=== PATIENT | female | born 1945 | race Caucasian/White ===

== ENCOUNTER 2016-07-06 00:25 | Inpatient (IN) ==
[2016-07-06] MEDS ORDERED: Acetaminophen 650 MG RECTAL SUPP RC ONE (00:32)
--- NOTE | 2016-07-06 00:37 | Emergency Department Note ---
Disposition Clinical Impression: Altered mental status Sepsis Qualifiers: Sepsis type: sepsis due to unspecified organism Qualified Code(s): A41.9 - Sepsis, unspecified organism UTI (urinary tract infection) Qualifiers: Hematuria presence: without hematuria Disposition: Admitted As Inpatient Condition: Fair Altered Mental Status HPI - General Chief Complaint: ED Altered Mental Status Stated Complaint: unresponsive,uti Time Seen by Provider: 07/06/16 00:29 Source: EMS Mode of arrival: EMS Limitations: altered mental status Nursing Notes Reviewed: Yes Vital Signs Reviewed: Yes - History of Present Illness HPI Narrative: 71-year-old female presents for evaluation of altered mental status. Patient does have a history of UTIs of similar presentations. Patient has been feeling ill for the past 2 days per EMS. EMS provided history at presentation. Patient has a nonfocal neurologic exam. Patient's diet will provide history. Patient does answer simple questions with notable confusion. No trauma noted. Family not at bedside providing any further history. Patient's blood sugar was elevated. His tree was limited upon initial presentation given the patient's alteration in mental status. MD complaint: altered mental status, confusion Onset (ago): hour(s) Timing confirmed by: family member - Related Data Home Medications Medication Instructions Recorded Confirmed Acarbose [Precose] 25 mg PO TIDWM 02/02/15 01/10/16 Apremilast [Otezla] 30 mg PO BID 02/02/15 01/10/16 Aspirin Enteric Coated [Aspirin EC] 81 mg PO DAILY 02/02/15 01/10/16 Donepezil [Aricept] 5 mg PO HS 02/02/15 01/10/16 Furosemide [Lasix] 20 mg PO DAILY 02/02/15 01/10/16 Gabapentin [Neurontin] 300 mg PO BID 02/02/15 01/10/16 Insulin ASPART [NovoLOG] 20 - 25 unit SQ TIDAC 02/02/15 01/10/16 Insulin Glargine [Lantus] 50 unit SQ BID 02/02/15 01/10/16 Lisinopril [Zestril] 10 mg PO HS 02/02/15 01/10/16 Metformin [Glucophage] 500 mg PO BID 02/02/15 01/10/16 Omeprazole [PriLOSEC] 40 mg PO DAILY 02/02/15 01/10/16 Oxybutynin Chloride [Ditropan Xl] 10 mg PO DAILY 02/02/15 01/10/16 Potassium Chloride 20 meq PO DAILY 02/02/15 01/10/16 Saccharomyces Boulardii [Probiotic] 250 mg PO DAILY 02/02/15 01/10/16 Sucralfate [Carafate] 1 gm PO TID 02/02/15 01/10/16 TraMADol [Ultram] 50 mg PO Q4H PRN 02/02/15 01/10/16 Betamethasone Maddi 0.1% Crm 1 appl TP BID 12/16/15 01/10/16 [Valisone 0.1%] BuPROPion XL (24 HR) [Wellbutrin 150 mg PO DAILY 12/16/15 01/10/16 Xl] Paroxetine HCl [Paxil] 40 mg PO DAILY 12/16/15 01/10/16 Rosuvastatin [Crestor] 40 mg PO HS 12/16/15 01/10/16 Trospium Chloride 20 mg PO HS 12/16/15 01/10/16 Tolterodine LA (24 HR) [Detrol LA] 4 mg PO DAILY 12/30/15 01/10/16 Previous Rx's Medication Instructions Recorded HYDROcodone/Acet 5/325 mg [[place] 2 tab PO Q4H PRN #15 tablet 01/10/16 5-325 mg] Allergies Allergy/AdvReac Type Severity Reaction Status Date / Time heparin Allergy HIT Verified 12/30/15 13:48 Verapamil [From [place]] AdvReac Rash Verified 02/02/15 13:13 Limitations: ROS unobtainable due to patients medical condition Past Medical History - Past Medical History Medical history: Reports: cancer, diabetes, hypertension, kidney stones, other Surgical history: Reports: appendectomy, hysterectomy, knee replacement, pacemaker/AICD Psychiatric history: Reports: anxiety, depression - Social History Smoking Status: Never smoker Smokeless Tobacco Status: No Alcohol use: Reports: occasionally Drug use: Reports: none Physical Exam - General Limitations: altered mental status General appearance: alert, lethargic, obese - Head Head exam: atraumatic, normal inspection - Eye Eye exam: Present: normal appearance, EOMI (3MM). Absent: scleral icterus, miosis - ENT ENT exam: normal exam, mucous membranes moist - Neck Neck exam: Present: normal inspection - Chest Chest inspection: Present: normal inspection, symmetric chest wall rise - Respiratory Respiratory exam: Present: other (Controlling her secretions. Decreased breath sounds bilateral). Absent: normal lung sounds bilaterally, respiratory distress , accessory muscle use - Cardiovascular Cardiovascular exam: Present: regular rate, normal rhythm - Abdominal Exam Abdominal exam: Present: soft, Non-Tender. Absent: guarding, rebound - Extremities Exam Extremities exam: Present: normal inspection. Absent: pedal edema - Back Exam Back exam: Present: normal inspection - Neurological Exam Neurological exam: Present: alert, other (Moving all extremities. Nonfocal exam. Does not follow directions.) - Skin Skin exam: Present: warm, dry, intact, normal color, other (Warm to the touch) Course Course Narrative: Patient did trigger surgical criteria with her fever, altered mental status. Likely source in the urine. Patient will also get a chest x-ray, head CT basic lab work. Patient will get gradual titration of fluid hydration. Concerns of over hydrating with the 30 mL/kg bolus until known cardiac function is obtained. Patient does have a pacemaker in place. Patient records review shows that her urine was sensitive to Rocephin in the past. Patient will be cultured as well as IV antibiotics initiated. Laboratory per sepsis protocol. Vital Signs Temperature 102.8 F H 07/06/16 00:26 Pulse Rate 101 07/06/16 00:26 Respiratory Rate 20 07/06/16 00:26 Blood Pressure 171/93 07/06/16 00:26 O2 Sat by Pulse Oximetry 97 07/06/16 00:26 Temperature 102.8 F H 07/06/16 00:26 Pulse Rate 101 07/06/16 01:15 Respiratory Rate 20 07/06/16 01:15 Blood Pressure 148/85 07/06/16 01:15 O2 Sat by Pulse Oximetry 96 07/06/16 01:15 Oxygen Delivery Oxygen Delivery Nasal Cannula Altered Mental Status - [facility] Narrative Medical decision making narrative: 71-year-old female patient. For evaluation of altered mental status. Patient has a history of similar presentation with urinary tract infections. Patient was incontinent of urine on presentation. Patient did trigger seizures with sepsis likely source in the urine. Patient received 2 L normal fluid hydration of saline. Was cautious about the 30 mL/kg as the patient is elderly and does have a pacemaker and concerned about heart function. Patient also had a head CT as well as a chest x-ray given the alteration in mental status. Patient's neuro exam is nonfocal. Moving all extremity. Patient does answer questions but appears inappropriate. Patient's laboratory review shows that she does have urinary tract infection. Prior cultures are pansensitive Escherichia coli. Patient was given 2 g Rocephin upon arrival. One of care was discussed with the patient's at bedside. Agrees with plan of care. Admitted to the hospital service for further care and managing. The remaining of the documentation is found on paper format during [facility] downtime. Please see that degradation for complete details of the emergency department stay. - Lab Data Lab results reviewed: Yes I reviewed the patient's lab results. Result diagrams: 07/06/16 00:41 07/06/16 00:41 Lab Results 07/06/16 07/06/16 07/06/16 Range/Units 00:41 00:41 00:41 WBC 9.7 (4.3-11.1) K/mcL RBC 4.93 (3.82-4.97) M/mcL Hgb 13.3 (11.5-15.4) g/dL Hct 41.2 (35.3-44.9) % MCV 83.6 (83.0-100.0) fL MCH 27.0 L (28.0-33.3) pg MCHC 32.3 (31.6-35.5) g/dL RDW 15.7 H (11.5-14.5) % Plt Count 109 L (140-400) K/mcL MPV 10.1 (9.4-12.4) fL Immature Gran % 0.3 (0-4) % Seg Neutrophils % 80.2 % Lymphocytes % 11.5 % Monocytes % 7.8 % Eosinophils % 0.0 % Basophils % 0.2 % Neutrophils # 7.8 (1.6-8.9) K/mcL Lymphocytes # 1.1 (0.6-4.6) K/mcL Monocytes # 0.8 (0.0-1.3) K/mcL Eosinophils # 0.0 (0.0-0.6) K/mcL Basophils # 0.0 (0.0-0.2) K/mcL PT 16.6 H (9.4-12.1) Seconds INR 1.5 APTT 33.4 (26.0-36.0) Seconds Sodium (136-145) mEq/L Potassium (3.5-4.5) mEq/L Chloride (98-109) mEq/L Carbon Dioxide (19-29) mEq/L BUN (7-20) mg/dL Creatinine (0.57-1.11) mg/dL Est GFR ( Amer) (> 60) Est GFR (Non-Af Amer) (> 60) BUN/Creatinine Ratio (6-26) Glucose (70-99) mg/dL Calculated Osmolality (280-300) Lactic Acid (0.5-2.2) mmol/L Calcium (8.6-10.8) mg/dL Phosphorus (2.3-4.7) mg/dL Magnesium (1.6-2.6) mg/dL Total Bilirubin (0.2-1.2) mg/dL Direct Bilirubin (0.0-0.5) mg/dL Indirect Bilirubin (0.0-1.2) mg/dL AST (5-34) Units/L ALT (0-55) Units/L Alkaline Phosphatase (38-126) Units/L Troponin I (0-0.03) ng/mL B-Natriuretic Peptide 133 H (0-100) pg/mL Serum Total Protein (6.0-8.3) g/dL Albumin (3.5-5.0) g/dL Globulin (2.4-3.5) g/dL Albumin/Globulin Ratio (1.1-2.2) Urine Color (Yellow) Urine Clarity (Clear) Urine pH (5.0-8.0) pH Units Ur Specific [place] (1.010-1.025) Urine Protein (Neg-Trace) mg/dL Urine Glucose (UA) (Normal) mg/dL Urine Ketones (Negative) mg/dL Urine Blood (Negative) Urine Nitrite (Negative) Urine Bilirubin (Negative) Urine Urobilinogen (Normal) mg/dL Ur Leukocyte Esterase (Negative) Urine Microscopic RBC (0-3) per hpf Urine Microscopic WBC (0-3) per hpf Ur Squamous Epith Cells (None-Few) per lpf Urine Bacteria (None-Few) per hpf Ur Culture Indicated? (NO) 07/06/16 07/06/16 07/06/16 Range/Units 00:41 00:41 00:41 WBC (4.3-11.1) K/mcL RBC (3.82-4.97) M/mcL Hgb (11.5-15.4) g/dL Hct (35.3-44.9) % MCV (83.0-100.0) fL MCH (28.0-33.3) pg MCHC (31.6-35.5) g/dL RDW (11.5-14.5) % Plt Count (140-400) K/mcL MPV (9.4-12.4) fL Immature Gran % (0-4) % Seg Neutrophils % % Lymphocytes % % Monocytes % % Eosinophils % % Basophils % % Neutrophils # (1.6-8.9) K/mcL Lymphocytes # (0.6-4.6) K/mcL Monocytes # (0.0-1.3) K/mcL Eosinophils # (0.0-0.6) K/mcL Basophils # (0.0-0.2) K/mcL PT (9.4-12.1) Seconds INR APTT (26.0-36.0) Seconds Sodium 136 (136-145) mEq/L Potassium 3.9 (3.5-4.5) mEq/L Chloride 102 (98-109) mEq/L Carbon Dioxide 20 (19-29) mEq/L BUN 24 H (7-20) mg/dL Creatinine 1.50 H (0.57-1.11) mg/dL Est GFR ( Amer) 41 L (> 60) Est GFR (Non-Af Amer) 34 L (> 60) BUN/Creatinine Ratio 16 (6-26) Glucose 337 H (70-99) mg/dL Calculated Osmolality 299 (280-300) Lactic Acid 2.0 (0.5-2.2) mmol/L Calcium 9.9 (8.6-10.8) mg/dL Phosphorus 2.5 (2.3-4.7) mg/dL Magnesium 1.6 (1.6-2.6) mg/dL Total Bilirubin 1.6 H (0.2-1.2) mg/dL Direct Bilirubin 0.8 H (0.0-0.5) mg/dL Indirect Bilirubin 0.8 (0.0-1.2) mg/dL AST 18 (5-34) Units/L ALT 19 (0-55) Units/L Alkaline Phosphatase 132 H (38-126) Units/L Troponin I 0.01 (0-0.03) ng/mL B-Natriuretic Peptide (0-100) pg/mL Serum Total Protein 8.1 (6.0-8.3) g/dL Albumin 3.1 L (3.5-5.0) g/dL Globulin 5.0 H (2.4-3.5) g/dL Albumin/Globulin Ratio 0.6 L (1.1-2.2) Urine Color (Yellow) Urine Clarity (Clear) Urine pH (5.0-8.0) pH Units Ur Specific [place] (1.010-1.025) Urine Protein (Neg-Trace) mg/dL Urine Glucose (UA) (Normal) mg/dL Urine Ketones (Negative) mg/dL Urine Blood (Negative) Urine Nitrite (Negative) Urine Bilirubin (Negative) Urine Urobilinogen (Normal) mg/dL Ur Leukocyte Esterase (Negative) Urine Microscopic RBC (0-3) per hpf Urine Microscopic WBC (0-3) per hpf Ur Squamous Epith Cells (None-Few) per lpf Urine Bacteria (None-Few) per hpf Ur Culture Indicated? (NO) 07/06/16 Range/Units 03:00 WBC (4.3-11.1) K/mcL RBC (3.82-4.97) M/mcL Hgb (11.5-15.4) g/dL Hct (35.3-44.9) % MCV (83.0-100.0) fL MCH (28.0-33.3) pg MCHC (31.6-35.5) g/dL RDW (11.5-14.5) % Plt Count (140-400) K/mcL MPV (9.4-12.4) fL Immature Gran % (0-4) % Seg Neutrophils % % Lymphocytes % % Monocytes % % Eosinophils % % Basophils % % Neutrophils # (1.6-8.9) K/mcL Lymphocytes # (0.6-4.6) K/mcL Monocytes # (0.0-1.3) K/mcL Eosinophils # (0.0-0.6) K/mcL Basophils # (0.0-0.2) K/mcL PT (9.4-12.1) Seconds INR APTT (26.0-36.0) Seconds Sodium (136-145) mEq/L Potassium (3.5-4.5) mEq/L Chloride (98-109) mEq/L Carbon Dioxide (19-29) mEq/L BUN (7-20) mg/dL Creatinine (0.57-1.11) mg/dL Est GFR ( Amer) (> 60) Est GFR (Non-Af Amer) (> 60) BUN/Creatinine Ratio (6-26) Glucose (70-99) mg/dL Calculated Osmolality (280-300) Lactic Acid (0.5-2.2) mmol/L Calcium (8.6-10.8) mg/dL Phosphorus (2.3-4.7) mg/dL Magnesium (1.6-2.6) mg/dL Total Bilirubin (0.2-1.2) mg/dL Direct Bilirubin (0.0-0.5) mg/dL Indirect Bilirubin (0.0-1.2) mg/dL AST (5-34) Units/L ALT (0-55) Units/L Alkaline Phosphatase (38-126) Units/L Troponin I (0-0.03) ng/mL B-Natriuretic Peptide (0-100) pg/mL Serum Total Protein (6.0-8.3) g/dL Albumin (3.5-5.0) g/dL Globulin (2.4-3.5) g/dL Albumin/Globulin Ratio (1.1-2.2) Urine Color Yellow (Yellow) Urine Clarity Turbid A (Clear) Urine pH 6.5 (5.0-8.0) pH Units Ur Specific [place] 1.020 (1.010-1.025) Urine Protein 100 H (Neg-Trace) mg/dL Urine Glucose (UA) >=1000 H (Normal) mg/dL Urine Ketones Trace H (Negative) mg/dL Urine Blood Moderate H (Negative) Urine Nitrite Positive A (Negative) Urine Bilirubin Negative (Negative) Urine Urobilinogen Normal (Normal) mg/dL Ur Leukocyte Esterase Large H (Negative) Urine Microscopic RBC 0-3 (0-3) per hpf Urine Microscopic WBC TNTC H (0-3) per hpf Ur Squamous Epith Cells Many H (None-Few) per lpf Urine Bacteria Moderate H (None-Few) per hpf Ur Culture Indicated? YES A (NO) - Radiology Data Radiology results reviewed: Yes I reviewed the patient's radiology results. Head CT 07/06/16 00:34 IMPRESSION: No acute intracranial abnormality. D/ / West Smallwood MD / West Smallwood MD Interpreting Provider: West Smallwood MD S.B.A.R. - S.B.A.R. Situation: Demographics Background: Presenting Complaint Assessment: Vital Signs, Course and respsone to treatment, Patient/Family Expectation, Pertinant Lab Results Recommendation: Barrier(s) to disposition, Recommendation based on pending studies, treatments, or consults S.B.A.R. Report Given to: Hospitalist Attestation Statement - Attestation Attestation: See downtime dictation note.
[2016-07-06 00:50] LABS: Basophils % 0.2 %; Hematocrit 41.2 % (35.3-44.9); Hemoglobin 13.3 g/dL (11.5-15.4); Immature Granulocytes % 0.3 % (0-4); Lymphocytes # 1.1 K/mcL (0.6-4.6); Lymphocytes % 11.5 %; Mean Corpuscular HGB Conc 32.3 g/dL (31.6-35.5); Mean Corpuscular Volume 83.6 fL (83.0-100.0); Mean Platelet Volume 10.1 fL (9.4-12.4); Monocytes # 0.8 K/mcL (0.0-1.3); Monocytes % 7.8 %; Neutrophils # 7.8 K/mcL (1.6-8.9); Platelet Count 109 K/mcL (140-400); Red Blood Count 4.93 M/mcL (3.82-4.97); Red Cell Distribution Width 15.7 % (11.5-14.5); Segmented Neutrophils % 80.2 %
[2016-07-06] MEDS: 0.9 % Sodium Chloride 1,000 ML IVC SCH ×4 (00:57→23:04)
[2016-07-06 00:58] LABS: INR 1.5; Prothrombin Time 16.6 Seconds (9.4-12.1)
[2016-07-06 01:00] LABS: Activated Partial Thrombo Time 33.4 Seconds (26.0-36.0)
[2016-07-06 03:47] LABS: Albumin 3.1 g/dL (3.5-5.0); Albumin/Globulin Ratio 0.6 (1.1-2.2); Bilirubin,Direct 0.8 mg/dL (0.0-0.5); Bilirubin,Indirect 0.8 mg/dL (0.0-1.2); Bilirubin,Total 1.6 mg/dL (0.2-1.2); Calcium 9.9 mg/dL (8.6-10.8); Magnesium 1.6 mg/dL (1.6-2.6); Phosphorous 2.5 mg/dL (2.3-4.7); Potassium 3.9 mEq/L (3.5-4.5); Total Protein 8.1 g/dL (6.0-8.3)
--- NOTE | 2016-07-06 04:42 | Internal Med History&Physical ---
Date of Encounter: 07/06/16 Time of Encounter: 04:41 Assessment and Plan (1) Severe sepsis Current visit: Yes Status: Acute pt with a history of recurrent UTI's associated with confusion was brought in by family for same presentation, though urine is a dirty sample it is suggestive of UTI, she additionally meets SIRS criteria(fever, tachycardia) with end organ damage-Brain, we will treat empirically whilst awaiting microbiology results (2) Acute encephalopathy Current visit: Yes Status: Acute most likely septic related, we will treat underlying cause whilst doing neuro checks Qshift (3) UTI (urinary tract infection) Current visit: Yes Status: Acute per severe sepsis section Qualifiers: Urinary tract infection type: acute cystitis Hematuria presence: with hematuria Qualified Code(s): N30.01 - Acute cystitis with hematuria (4) Diabetes mellitus Current visit: Yes Status: Chronic pt with DM2 on assembler musical equipment insulin, we will do basal bolus regimen, FS ACHS and diabetic diet once more awake, if still lethargic and there is concern for aspiration risk we will make her NPO and do FS Q6H Qualifiers: Diabetes mellitus type: type 2 Diabetes mellitus complication status: with unspecified complications Diabetes mellitus [facility] insulin use: with assembler musical equipment use Qualified Code(s): E11.8 - Type 2 diabetes mellitus with unspecified complications; Z79.4 - residential (current) use of insulin (5) HTN (hypertension) Current visit: Yes Status: Chronic hx of HTN on lisinopril, we will continue antihypertensives as long as BP holds Qualifiers: Hypertension type: essential hypertension Qualified Code(s): I10 - Essential (primary) hypertension (6) GERD (gastroesophageal reflux disease) Current visit: Yes Status: Chronic will continue PPI Qualifiers: Esophagitis presence: without esophagitis Qualified Code(s): K21.9 - Gastro -esophageal reflux disease without esophagitis (7) Depression Current visit: Yes Status: Chronic will continue her home medications once confirmed Qualifiers: Depression Type: reactive depression Qualified Code(s): F32.9 - Major depressive disorder, single episode, unspecified Internal Medicine - H&P: HPI Chief complaint: Altered mental status Admitted From: Emergency Dept Plans for Post Hospital Care: Home History of present illness: Ms. Mendes is a 71 year old female with a history of recurrent UTI's was brought in with altered mental status. It was reported by family and ER charts that she has been unwell for 2 days prior to presentation with generalized weakness and progressive lethargy. Family reports that anytime she gets UTI she gets confused and has to be brought in for treatment. She was brought in for that reason. We are unable to complete review of systems due to altered mental status. History was extracted from ER notes and review of other charts. Past Med Surg Social Fam HX - Past Medical History Source: old records reviewed, nursing notes reviewed Medical history: cancer, diabetes, hypertension, kidney stones, other Psychiatric history: anxiety, depression - Past Surgical History Surgical History: appendectomy, hysterectomy, knee replacement, pacemaker/AICD - Social History Smoking Status: Never smoker Smokeless Tobacco Status: No Alcohol use: occasionally Drug use: none - Additional Family History Additional family history: unable to obtain due to altered mental status Internal Medicine - H&P: Meds Acarbose [Precose] 25 mg PO TIDWM 02/02/15 [History] Apremilast [Otezla] 30 mg PO BID 02/02/15 [History] Aspirin Enteric Coated [Aspirin EC] 81 mg PO DAILY 02/02/15 [History] Donepezil [Aricept] 5 mg PO HS 02/02/15 [History] Furosemide [Lasix] 20 mg PO DAILY 02/02/15 [History] Gabapentin [Neurontin] 300 mg PO BID 02/02/15 [History] Insulin ASPART [NovoLOG] 20 - 25 unit SQ TIDAC 02/02/15 [History] Insulin Glargine [Lantus] 50 unit SQ BID 02/02/15 [History] Lisinopril [Zestril] 10 mg PO HS 02/02/15 [History] Metformin [Glucophage] 500 mg PO BID 02/02/15 [History] Omeprazole [PriLOSEC] 40 mg PO DAILY 02/02/15 [History] Oxybutynin Chloride [Ditropan Xl] 10 mg PO DAILY 02/02/15 [History] Potassium Chloride 20 meq PO DAILY 02/02/15 [History] Saccharomyces Boulardii [Probiotic] 250 mg PO DAILY 02/02/15 [History] Sucralfate [Carafate] 1 gm PO TID 02/02/15 [History] TraMADol [Ultram] 50 mg PO Q4H PRN 02/02/15 [History] Betamethasone Maddi 0.1% Crm [Valisone 0.1%] 1 appl TP BID 12/16/15 [History] BuPROPion XL (24 HR) [Wellbutrin Xl] 150 mg PO DAILY 12/16/15 [History] Paroxetine HCl [Paxil] 40 mg PO DAILY 12/16/15 [History] Rosuvastatin [Crestor] 40 mg PO HS 12/16/15 [History] Trospium Chloride 20 mg PO HS 12/16/15 [History] Tolterodine LA (24 HR) [Detrol LA] 4 mg PO DAILY 12/30/15 [History] HYDROcodone/Acet 5/325 mg [[place] 5-325 mg] 2 tab PO Q4H PRN #15 tablet 01/10/16 [Rx] Allergies heparin Allergy (Verified 12/30/15 13:48) HIT "HIT" PER [facility] Verapamil [From Calan] Adverse Reaction (Verified 02/02/15 13:13) Rash All Systems PM: A 10-system review of systems was performed and is negative for pertinent findings except as documented above in the HPI. - Constitutional Vitals: Temp Pulse Resp BP Pulse Ox 102.8 F H 101 20 148/85 96 07/06/16 00:26 07/06/16 01:15 07/06/16 01:15 07/06/16 01:15 07/06/16 01:15 - General General appearance: Adult female, lethargic, obese, easy to arouse, - Head Head exam: atraumatic, normal inspection - Eye Eye exam: BETTY, EOMI, Absent: scleral icterus, conjunctiva pallor - ENT ENT exam: dry membranes moist noted - Neck Neck exam: Present: normal inspection - Respiratory Respiratory exam: clear breath sounds, no crackles or wheeze, - Cardiovascular Cardiovascular exam: left chest device noted, regular rate, normal rhythm, no murmur, nor ankle edema - Abdominal Exam Abdominal exam: obese looking, normal bowel sounds, soft, Non-Tender. Absent: guarding, rebound - Extremities Exam Extremities exam: normal inspection. Absent: pedal edema - Neurological Exam Neurological exam: lethargic, able to move all extremities spontaneously - Skin Skin exam: warm, dry, intact, normal color, Internal Med - H&P Results - Labs CBC & Chem 7: 07/06/16 00:41 07/06/16 00:41 Labs: Short CBC 07/06/16 Range/Units 00:41 WBC 9.7 (4.3-11.1) K/mcL Hgb 13.3 (11.5-15.4) g/dL Hct 41.2 (35.3-44.9) % Plt Count 109 L (140-400) K/mcL Neutrophils # 7.8 (1.6-8.9) K/mcL BMP 07/06/16 00:41 Sodium 136 Potassium 3.9 Chloride 102 Carbon Dioxide 20 BUN 24 H Creatinine 1.50 H Glucose 337 H Calcium 9.9 Cardiac Enzymes 07/06/16 Range/Units 00:41 Troponin I 0.01 (0-0.03) ng/mL Liver Function 07/06/16 Range/Units 00:41 Total Bilirubin 1.6 H (0.2-1.2) mg/dL Direct Bilirubin 0.8 H (0.0-0.5) mg/dL AST 18 (5-34) Units/L ALT 19 (0-55) Units/L Alkaline Phosphatase 132 H (38-126) Units/L Albumin 3.1 L (3.5-5.0) g/dL - EKG Data -: EKG Interpreted by Myself (paced rhythm) - Impressions ITS Impressions Head CT 07/06/16 00:34 IMPRESSION: No acute intracranial abnormality. D/ / West Smallwood MD / West Smallwood MD Interpreting Provider: West Smallwood MD - Diagnostic Studies CT scan - head Status: image reviewed by me
[2016-07-06 04:52] LABS: Bilirubin,Urine Negative (Negative); Blood,Urine Moderate (Negative); Clarity,Urine Turbid (Clear); Color,Urine Yellow (Yellow); Glucose,Urine (UA) >=1000 mg/dL (Normal); Ketones,Urine Trace mg/dL (Negative); PH,Urine 6.5 pH Units (5.0-8.0); Protein,Urine 100 mg/dL (Neg-Trace); Urobilinogen,Urine Normal (Normal)
[2016-07-06 04:53] LABS: Bacteria,Urine Moderate per hpf (None-Few); Leukocyte Esterase,Urine Large (Negative); Nitrite,Urine Positive (Negative); RBC,Urine 0-3 per hpf (0-3); Squamous Epithelial Cell,Urine Many per lpf (None-Few); WBC,Urine TNTC per hpf (0-3)
[2016-07-06] MEDS ORDERED: Naloxone 0.4 MG/ML INJ IVP PRN (04:58)
[2016-07-06] MEDS ORDERED: *HR* Dextrose 50 % in Water (Syg) 50 ML SYRINGE IVP PRN (05:00)
[2016-07-06] MEDS ORDERED: Dextrose Gel 15 GM PO PRN ×2 (05:00)
[2016-07-06] MEDS ORDERED: D5% in Water 1,000 ML IVC PRN (05:00)
[2016-07-06] MEDS: Acetaminophen 650 MG RECTAL SUPP RC PRN ×2 (08:53→23:04)
--- NOTE | 2016-07-06 08:54 | Electrocardiograph Report ---
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
[2016-07-06] MEDS: Insulin LISPRO 300 UNITS/3 ML VIAL SQ SCH ×4 (08:56→22:39)
[2016-07-06] MEDS ORDERED: Ketorolac 15 MG/ML VIAL IVP STA (10:12)
[2016-07-06] MEDS: Insulin DETEMIR 100 UNIT/ML X5UNITS SQ SCH (11:06)
[2016-07-06] MEDS: BuPROPion XL (24 HR) 150 MG TABLET PO SCH (13:51)
[2016-07-06 14:41] LABS: Enterococcus by PCR Not Detected (Not Detect); Staphylococcus aureus by PCR Not Detected (Not Detect); Streptococcus by PCR Not Detected (Not Detect); blaKPC Carbapenem-Resist Gene Not Detected (Not Detect); mecA Methicillin-Resist Gene Not Detected (Not Detect); vanA/B Vancomycin-Resist Genes Not Detected (Not Detect)
[2016-07-06 14:42] LABS: Acinetobacter baumannii by PCR Not Detected (Not Detect); Candida albicans by PCR Not Detected (Not Detect); Candida glabrata by PCR Not Detected (Not Detect); Candida krusei by PCR Not Detected (Not Detect); Candida parapsilosis by PCR Not Detected (Not Detect); Candida tropicalis by PCR Not Detected (Not Detect); Escherichia coli by PCR ***DETECTED*** (Not Detect); Klebsiella oxytoca by PCR Not Detected (Not Detect); Klebsiella pneumoniae by PCR Not Detected (Not Detect); Pseudomonas aeruginosa by PCR Not Detected (Not Detect); Serratia marcescens by PCR Not Detected (Not Detect); Streptococcus agalactiae(B)PCR Not Detected (Not Detect); Streptococcus pneumoniae PCR Not Detected (Not Detect); Streptococcus pyogenes (A) PCR Not Detected (Not Detect)
--- NOTE | 2016-07-06 18:44 | Event Note ---
Date of Encounter: 07/06/16 Time of Encounter: 15:00 Pt admitted earlier today with UTI and acute encephalopathy. Currently she is febrile and sleepy. She arouses to name. Heart tachy and regular. Blood cx with E. coli Continue same plan of care.
[2016-07-07 04:04] LABS: Immature Granulocytes % 0.3 % (0-4)
[2016-07-07 04:06] LABS: Basophils % 0.2 %; Hematocrit 35.7 % (35.3-44.9); Hemoglobin 11.4 g/dL (11.5-15.4); Immature Platelets 5.4 % (1.1-6.1); Lymphocytes % 15.6 %; Mean Corpuscular HGB Conc 31.9 g/dL (31.6-35.5); Mean Corpuscular Volume 84.4 fL (83.0-100.0); Mean Platelet Volume 10.4 fL (9.4-12.4); Monocytes # 0.7 K/mcL (0.0-1.3); Monocytes % 10.9 %; Red Blood Count 4.23 M/mcL (3.82-4.97); Red Cell Distribution Width 15.5 % (11.5-14.5)
[2016-07-07 04:19] LABS: Calcium 9.1 mg/dL (8.6-10.8); Magnesium 1.9 mg/dL (1.6-2.6); Phosphorous 2.4 mg/dL (2.3-4.7)
[2016-07-07 04:40] LABS: Potassium 3.6 mEq/L (3.5-4.5)
[2016-07-07 04:48] LABS: Neutrophils # 4.5 K/mcL (1.6-8.9); Platelet Count 90 K/mcL (140-400)
[2016-07-07 04:49] LABS: Platelet Estimate Decreased (Normal)
[2016-07-07 04:50] LABS: Reactive Lymphocytes Present (Not Present)
[2016-07-07] MEDS: BuPROPion XL (24 HR) 150 MG TABLET PO SCH (08:39)
[2016-07-07] MEDS: Insulin LISPRO 300 UNITS/3 ML VIAL SQ SCH ×4 (13:28→23:40)
[2016-07-07] MEDS: Insulin DETEMIR 100 UNIT/ML X5UNITS SQ SCH (13:29)
[2016-07-07] MEDS: Acetaminophen 325 MG TABLET PO PRN ×2 (14:11→21:32)
--- NOTE | 2016-07-07 14:26 | Internal Med Progress Note ---
Date of Encounter: 07/07/16 Time of Encounter: 08:30 - Assessment and plan (1) Severe sepsis Current Visit: Yes Status: Acute Assessment and plan: Blood cultures with E. coli. Now afebrile. WBC normal. Remains chilled and tachycardic as well as oriented only to person. Continue IV abx as ordered pending final sensitivities. (2) Pyelonephritis, acute Current Visit: Yes Status: Acute Assessment and plan: Bilateral stranding seen on CT. (3) UTI (urinary tract infection) Current Visit: Yes Status: Acute Assessment and plan: Gram negative mayuri in urine. Most likely will be same E coli in blood. Continue IV abx. CT neg for overt obstruction but c/w pyelonephritis. If does not improved with treatment will reassess for stones. Qualifiers: Urinary tract infection type: acute cystitis Hematuria presence: with hematuria Qualified Code(s): N30.01 - Acute cystitis with hematuria (4) Acute metabolic encephalopathy Current Visit: Yes Status: Acute Assessment and plan: Seems to be slowly improving with treatment. (5) FIDENCIO (acute kidney injury) Current Visit: Yes Status: Acute Assessment and plan: IV fluids and monitor. Most likely related to dehydration from infection. (6) Diabetes mellitus Current Visit: Yes Status: Chronic Assessment and plan: Continue to monitor blood sugars and cover. Qualifiers: Diabetes mellitus type: type 2 Diabetes mellitus complication status: with hyperglycemia Diabetes mellitus lobsterman insulin use: with lobsterman use Qualified Code(s): E11.65 - Type 2 diabetes mellitus with hyperglycemia; Z79.4 - termite helper (current) use of insulin (7) HTN (hypertension) Current Visit: Yes Status: Chronic Assessment and plan: Controlled at this time. Qualifiers: Hypertension type: essential hypertension Qualified Code(s): I10 - Essential (primary) hypertension - Subjective Interval history: Ms Mendes is currently admitted for acute metabolic encephalopathy and UTI. She is high risk due to bacteremia and need for IV abx as well as potential for worsening infectious status. Ms. Mendes is more alert today but still confused. She is oriented only to person. She has had 2 loose stools today (watery). No CP or SOB. Not much appetite. No abd pain. Still feels chilled but no documented fever. - Constitutional Vitals: Temp Pulse Resp BP Pulse Ox 98.6 F 99 19 121/57 99 07/07/16 11:20 05/12/17 11:20 07/07/16 11:20 07/07/16 11:20 07/07/16 11:20 General appearance: Present: A&O X 1 Exam: Having some chills at this time. - Head Head exam: Present: normocephalic - Eye Eye exam: Present: conjuntiva pink, sclera anicteric - ENT ENT exam: Present: mucous membranes dry - Respiratory Respiratory exam: Present: decreased breath sounds, CTAB. Absent: rales, wheezes Additional comments: Anteriorly and laterally. - Cardiovascular Cardiovascular exam: Present: RRR, tachycardia - GI/Abdominal GI/Abdominal exam: Present: soft. Absent: mass, tenderness - Extremities Exam Extremities exam: Present: warm. Absent: tenderness - Neurological Exam Neurological exam: Present: alert, no focal deficits - Skin Skin exam: Present: dry, warm. Absent: rash Internal Medicine: Result - Labs CBC & Chem 7: 07/07/16 03:22 07/07/16 03:22 Labs: Short CBC 07/07/16 Range/Units 03:22 WBC 6.1 (4.3-11.1) K/mcL Hgb 11.4 L D (11.5-15.4) g/dL Hct 35.7 (35.3-44.9) % Plt Count 90 L (140-400) K/mcL Neutrophils # 4.5 (1.6-8.9) K/mcL BMP 07/07/16 03:22 Sodium 141 Potassium 3.6 Chloride 111 H Carbon Dioxide 19 BUN 26 H Creatinine 1.16 H Glucose 173 H Calcium 9.1 - ABG Interpretation ABG results: PT/INR, D-dimer PT 16.6 Seconds (9.4-12.1) H 07/06/16 00:41 Consult Discharge Plan - Plan Additional Instructions: dr healy pcp request made on 07/06 Referrals: Mirlande Healy MD [Primary Care Provider] -
[2016-07-08] MEDS: 0.9 % Sodium Chloride 1,000 ML IVC SCH ×4 (00:10→20:22)
[2016-07-08] MEDS: Acetaminophen 325 MG TABLET PO PRN ×2 (03:37→17:19)
[2016-07-08 04:24] LABS: Red Cell Distribution Width 15.2 % (11.5-14.5)
[2016-07-08 04:26] LABS: Hematocrit 35.4 % (35.3-44.9); Hemoglobin 11.3 g/dL (11.5-15.4); Immature Platelets 5.2 % (1.1-6.1); Mean Corpuscular HGB Conc 31.9 g/dL (31.6-35.5); Mean Corpuscular Volume 84.7 fL (83.0-100.0); Mean Platelet Volume 10.3 fL (9.4-12.4); Red Blood Count 4.18 M/mcL (3.82-4.97)
[2016-07-08 04:38] LABS: Albumin/Globulin Ratio 0.6 (1.1-2.2); Bilirubin,Total 0.5 mg/dL (0.2-1.2); Calcium 8.7 mg/dL (8.6-10.8); Globulin 4.3 g/dL (2.4-3.5); Magnesium 1.6 mg/dL (1.6-2.6); Potassium 3.2 mEq/L (3.5-4.5); Total Protein 6.7 g/dL (6.0-8.3)
[2016-07-08 04:40] LABS: Albumin 2.4 g/dL (3.5-5.0)
[2016-07-08] MEDS: BuPROPion XL (24 HR) 150 MG TABLET PO SCH (08:14)
[2016-07-08] MEDS: Insulin LISPRO 300 UNITS/3 ML VIAL SQ SCH ×4 (08:15→22:08)
[2016-07-08] MEDS: Insulin DETEMIR 100 UNIT/ML X5UNITS SQ SCH (08:15)
--- NOTE | 2016-07-08 11:16 | Internal Med Progress Note ---
<Anita Sierra - Last Filed: 07/08/16 13:17> Date of Encounter: 07/08/16 Time of Encounter: 10:30 - Assessment and plan (1) Severe sepsis Current Visit: Yes Status: Acute Assessment and plan: With fever, tachycardia, altered mental status and FIDENCIO on initial presentation. Secondary to E. coli UTI and associated bacteremia. Significantly improves as patient is now more oriented and remains afebrile with normal WBC. Continue IV antibiotic. (2) Bacteremia Current Visit: Yes Status: Acute Assessment and plan: Blood cultures on 07/06 (2/2) grew hall-sensitive E. coli. Most likely secondary to E. coli UTI. Repeat blood cultures on 07/07 (2/2) NGTD. Will switch to IV levofloxacin. (3) Pyelonephritis, acute Current Visit: Yes Status: Acute Assessment and plan: Urine culture grew E. coli (almost hall-sensitive except resistant to ampicillin and intermediate to amp/sulbactam) with bilateral perinephric stranding on CT A/ P. Will switch to IV levofloxacin and patient will need 14-day course of antibiotic for her pyelonephritis. If no improvment, consider urology consult for possible infected kidney stones. (4) Acute metabolic encephalopathy Current Visit: Yes Status: Acute Assessment and plan: Altered mental status on initial presentation, likely secondary to urosepsis. Significantly improves as patient is alert and orient to person, place and part of time (year) compared to orient to person only yesterday. Continue to monitor. (5) FIDENCIO (acute kidney injury) Current Visit: Yes Status: Acute Assessment and plan: SCr 1.5 on initial presentation, likely secondary to dehydration and sepsis secondary to UTI. Improves as SCr stable around 1.18 today. Continue IV fluid, avoid nephrotoxin and monitor renal function and electrolytes. (6) Diabetes mellitus Current Visit: Yes Status: Chronic Assessment and plan: Continue basal and sliding scale insulin with routine monitoring of blood sugars Qualifiers: Diabetes mellitus type: type 2 Diabetes mellitus complication status: with hyperglycemia Diabetes mellitus watermaster insulin use: with fci use Qualified Code(s): E11.65 - Type 2 diabetes mellitus with hyperglycemia; Z79.4 - watermaster (current) use of insulin (7) DVT prophylaxis Current Visit: Yes Status: Acute Assessment and plan: Continue calf pump for mechanical DVT prophylaxis. No heparin given her HIT history. - Subjective Interval history: Ms Mendes is currently admitted for acute metabolic encephalopathy and UTI. She is high risk due to E. coli bacteremia and need for IV abx as well as potential for worsening infectious status. No significant event noted overnight. Patient was seen and examined this morning. Patient reports still sick but states maybe better compared to yesterday. Patient is alert and orient to person, place and part of time (year) , which is a significant improvement as she was alert and orient to person only yesterday. Patient denies fever, shortness of breath, chest pain, abdominal pain , nausea, vomiting, diarrhea, dysuria. - Constitutional Vitals: Temp Pulse Resp BP Pulse Ox 98.8 F 106 16 158/81 97 07/08/16 11:07 07/08/16 11:07 07/08/16 11:07 07/08/16 11:07 07/08/16 11:07 General appearance: Present: cooperative, A&O X 3 (to person, place and part of time (year)), no acute distress - Head Head exam: Present: atraumatic, normocephalic - Eye Eye exam: Present: PERRL, conjuntiva pink, sclera anicteric - Neck Neck exam general surgery: Present: supple, trachea midline. Absent: lymphadenopathy - Respiratory Respiratory exam: Present: CTAB. Absent: accessory muscle use, rales, rhonchi, wheezes - Cardiovascular Cardiovascular exam: Present: RRR, +S1, +S2. Absent: diastolic murmur, gallop, rubs, systolic murmur - GI/Abdominal GI/Abdominal exam: Present: normal bowel sounds, soft, no peritoneal signs. Absent: distended, tenderness - Extremities Exam Extremities exam: Present: warm, radial pulses palpable and symetrical. Absent : calf tenderness, cyanotic, pedal edema - Neurological Exam Neurological exam: Present: CN II-XII intact, no focal deficits. Absent: pronater drift, facial droop, speech deficit - Skin Skin exam: Present: dry, intact, warm Internal Medicine: Result - Labs CBC & Chem 7: 07/08/16 03:53 07/08/16 03:53 Labs: Short CBC 07/08/16 Range/Units 03:53 WBC 5.9 (4.3-11.1) K/mcL Hgb 11.3 L (11.5-15.4) g/dL Hct 35.4 (35.3-44.9) % Plt Count 100 L (140-400) K/mcL BMP 07/08/16 03:53 Sodium 138 Potassium 3.2 L Chloride 109 Carbon Dioxide 21 BUN 19 Creatinine 1.18 H Glucose 224 H Calcium 8.7 Liver Function 07/08/16 Range/Units 03:53 Total Bilirubin 0.5 (0.2-1.2) mg/dL AST 27 (5-34) Units/L ALT 21 (0-55) Units/L Alkaline Phosphatase 106 (38-126) Units/L Albumin 2.4 L D (3.5-5.0) g/dL - ABG Interpretation ABG results: PT/INR, D-dimer PT 16.6 Seconds (9.4-12.1) H 07/06/16 00:41 Consult Discharge Plan - Plan Additional Instructions: dr healy pcp request made on 07/06 Referrals: Mirlande Healy MD [Primary Care Provider] - 07/10/16 10:00 am <Cleveland Wright - Last Filed: 07/08/16 17:23> Date of Encounter: 07/08/16 - Assessment and plan (1) E. coli sepsis Current Visit: Yes Status: Acute (2) Severe sepsis Current Visit: Yes Status: Acute (3) Pyelonephritis, acute Current Visit: Yes Status: Acute (4) Acute metabolic encephalopathy Current Visit: Yes Status: Acute (5) FIDENCIO (acute kidney injury) Current Visit: Yes Status: Acute (6) Diabetes mellitus Current Visit: Yes Status: Chronic Qualifiers: Diabetes mellitus type: type 2 Diabetes mellitus complication status: with hyperglycemia Diabetes mellitus fci insulin use: with fci use Qualified Code(s): E11.65 - Type 2 diabetes mellitus with hyperglycemia; Z79.4 - watermaster (current) use of insulin (7) HTN (hypertension) Current Visit: Yes Status: Chronic Qualifiers: Hypertension type: essential hypertension Qualified Code(s): I10 - Essential (primary) hypertension - Constitutional Vitals: Temp Pulse Resp BP Pulse Ox 99.5 F 107 17 160/80 97 07/08/16 16:20 07/08/16 16:20 07/08/16 16:20 07/08/16 16:20 07/08/16 16:20 Internal Medicine: Result - Labs CBC & Chem 7: 07/08/16 03:53 07/08/16 03:53 Labs: Short CBC 07/08/16 Range/Units 03:53 WBC 5.9 (4.3-11.1) K/mcL Hgb 11.3 L (11.5-15.4) g/dL Hct 35.4 (35.3-44.9) % Plt Count 100 L (140-400) K/mcL BMP 07/08/16 03:53 Sodium 138 Potassium 3.2 L Chloride 109 Carbon Dioxide 21 BUN 19 Creatinine 1.18 H Glucose 224 H Calcium 8.7 Liver Function 07/08/16 Range/Units 03:53 Total Bilirubin 0.5 (0.2-1.2) mg/dL AST 27 (5-34) Units/L ALT 21 (0-55) Units/L Alkaline Phosphatase 106 (38-126) Units/L Albumin 2.4 L D (3.5-5.0) g/dL - ABG Interpretation ABG results: PT/INR, D-dimer PT 16.6 Seconds (9.4-12.1) H 07/06/16 00:41 - Attending Attestation I examined this patient and my medical decision-making was reviewed with the Resident Physician on 07/08/16. I agree with the documented findings, disposition and treatment plan as described except to the extent set forth below. Ms. Mendes is currently admitted for severe sepsis related to E coli pyelonephritis bilaterally. She remains high risk due to potential for worsening clinical status. Ms. Mendes appears more alert and oriented today. She denies new issues. No CP or SOB. Having some loose stool still. No further fever or chills. Exam alert. Comfortable Heart reg - not tachy Lungs clear Abd soft and nontender I/P 1. Severe sepsis 2. Bilateral pyelonephritis 3. E coli bacteremia Further diagnoses and plan as above.
[2016-07-08] MEDS ORDERED: Levofloxacin 750 MG/150 ML 750 MG/150 ML BAG IVPB SCH (14:00)
[2016-07-08] MEDS ORDERED: Levofloxacin 500 MG/100 ML 500 MG/100 ML BAG IVPB SCH (14:00)
[2016-07-09 03:23] LABS: Basophils % 0.3 %; Eosinophils # 0.1 K/mcL (0.0-0.6); Hemoglobin 10.9 g/dL (11.5-15.4); Immature Granulocytes % 0.3 % (0-4)
[2016-07-09 03:25] LABS: Hematocrit 33.6 % (35.3-44.9); Immature Platelets 3.6 % (1.1-6.1); Lymphocytes # 1.6 K/mcL (0.6-4.6); Lymphocytes % 28.4 %; Mean Corpuscular HGB Conc 32.4 g/dL (31.6-35.5); Mean Corpuscular Volume 83.2 fL (83.0-100.0); Monocytes # 0.6 K/mcL (0.0-1.3); Monocytes % 10.8 %; Neutrophils # 3.4 K/mcL (1.6-8.9); Platelet Count 109 K/mcL (140-400); Red Blood Count 4.04 M/mcL (3.82-4.97); Red Cell Distribution Width 14.8 % (11.5-14.5); Segmented Neutrophils % 59.2 %
[2016-07-09 03:29] LABS: BUN/Creatinine Ratio 14 (6-26); Blood Urea Nitrogen 15 mg/dL (7-20); Calcium 8.2 mg/dL (8.6-10.8); Carbon Dioxide 19 mEq/L (19-29); Chloride 111 mEq/L (98-109); Glucose 203 mg/dL (70-99); Osmolality,Calculated 295 (280-300); Potassium 2.9 mEq/L (3.5-4.5); Sodium 139 mEq/L (136-145); eGFR For African Americans > 60 (> 60); eGFR For Non-African Americans 51 (> 60)
[2016-07-09] MEDS: 0.9 % Sodium Chloride 1,000 ML IVC SCH ×2 (06:36→16:52)
[2016-07-09] MEDS ORDERED: Magnesium Sulfate 2 GM in D5% in Water 100 ML IVPB ONE (08:09)
[2016-07-09] MEDS: BuPROPion XL (24 HR) 150 MG TABLET PO SCH (08:40)
[2016-07-09] MEDS: Insulin DETEMIR 100 UNIT/ML X5UNITS SQ SCH (08:41)
[2016-07-09] MEDS: Insulin LISPRO 300 UNITS/3 ML VIAL SQ SCH ×3 (08:42→16:48)
--- NOTE | 2016-07-09 08:43 | Internal Med Progress Note ---
Date of Encounter: 07/09/16 Time of Encounter: 08:40 - Assessment and plan (1) Hypokalemia Current Visit: Yes Status: Acute Assessment and plan: Replace today. (2) Hypomagnesemia Current Visit: Yes Status: Acute Assessment and plan: Replace today. (3) E. coli sepsis Current Visit: Yes Status: Resolved Assessment and plan: At this point her sepsis syndrome has resolved. She is still on IV abx. No further fever. Repeat blood cx negative at one day. Continue IV abx. Follow tonight. Anticipate d/c soon on PO Levaquin for total of 14 days of abx therapy. (4) Severe sepsis Current Visit: Yes Status: Resolved Assessment and plan: Sepsis has resolved. Will continue IV abx for now and anticipate change to PO Levaquin. (5) Pyelonephritis, acute Current Visit: Yes Status: Acute Assessment and plan: Urine culture grew E. coli (almost hall-sensitive except resistant to ampicillin and intermediate to amp/sulbactam) with bilateral perinephric stranding on CT A/ P. Currently on IV Levaquin with plans to change to PO at discharge. (6) Acute metabolic encephalopathy Current Visit: Yes Status: Acute Assessment and plan: Mental status has been improving with treatment of bacteremia. Continue supportive care (7) FIDENCIO (acute kidney injury) Current Visit: Yes Status: Acute Assessment and plan: Creatinine has normalized today. Continue supportive care and avoid nephrotoxins. (8) Diabetes mellitus Current Visit: Yes Status: Chronic Assessment and plan: Continue basal and sliding scale insulin with routine monitoring of blood sugars Qualifiers: Diabetes mellitus type: type 2 Diabetes mellitus complication status: with hyperglycemia Diabetes mellitus group home insulin use: with group home use Qualified Code(s): E11.65 - Type 2 diabetes mellitus with hyperglycemia; Z79.4 - fish fryer (current) use of insulin (9) HTN (hypertension) Current Visit: Yes Status: Chronic Assessment and plan: Controlled at this time. Qualifiers: Hypertension type: essential hypertension Qualified Code(s): I10 - Essential (primary) hypertension - Subjective Interval history: Ms Mendes is currently admitted for acute metabolic encephalopathy and UTI. She is moderate to high risk due to bacteremia and need for IV abx as well as potential for worsening infectious status. Ms. Mendes is just waking up this AM. She slept OK last night. No CP or SOB. No further fevers. No cough. No new GI symptoms. Has gotten up some out of bed. - Constitutional Vitals: Temp Pulse Resp BP Pulse Ox 98.9 F 93 15 145/77 97 07/09/16 05:22 07/09/16 05:22 07/09/16 05:22 07/09/16 05:22 07/09/16 05:22 General appearance: Present: cooperative, A&O X 3 (to person, place and part of time (year)), no acute distress, answers questions appropriately - Head Head exam: Present: normocephalic - Eye Eye exam: Present: EOMI, conjuntiva pink - ENT ENT exam: Present: mucous membranes moist - Respiratory Respiratory exam: Present: CTAB. Absent: rales, rhonchi, wheezes - Cardiovascular Cardiovascular exam: Present: RRR. Absent: systolic murmur, tachycardia - GI/Abdominal GI/Abdominal exam: Present: normal bowel sounds, soft. Absent: mass, tenderness - Extremities Exam Extremities exam: Present: warm. Absent: pedal edema, tenderness - Neurological Exam Neurological exam: Present: alert, oriented X3, no focal deficits - Skin Skin exam: Present: warm. Absent: rash Internal Medicine: Result - Labs CBC & Chem 7: 07/09/16 03:01 07/09/16 03:01 Labs: Short CBC 07/09/16 Range/Units 03:01 WBC 5.7 (4.3-11.1) K/mcL Hgb 10.9 L (11.5-15.4) g/dL Hct 33.6 L (35.3-44.9) % Plt Count 109 L (140-400) K/mcL Neutrophils # 3.4 (1.6-8.9) K/mcL BMP 07/09/16 03:01 Sodium 139 Potassium 2.9 L Chloride 111 H Carbon Dioxide 19 BUN 15 Creatinine 1.07 Glucose 203 H Calcium 8.2 L - ABG Interpretation ABG results: PT/INR, D-dimer PT 16.6 Seconds (9.4-12.1) H 07/06/16 00:41 Consult Discharge Plan - Plan Additional Instructions: dr healy pcp request made on 07/06 Referrals: Mirlande Healy MD [Primary Care Provider] - 07/10/16 10:00 am
[2016-07-09] MEDS ORDERED: Insulin LISPRO 300 UNITS/3 ML VIAL SQ SCH (10:57)
[2016-07-10] MEDS: 0.9 % Sodium Chloride 1,000 ML IVC SCH (03:00)
[2016-07-10 03:57] LABS: BUN/Creatinine Ratio 10 (6-26); Blood Urea Nitrogen 11 mg/dL (7-20); Calcium 8.5 mg/dL (8.6-10.8); Carbon Dioxide 19 mEq/L (19-29); Chloride 110 mEq/L (98-109); Glucose 204 mg/dL (70-99); Magnesium 2.5 mg/dL (1.6-2.6); Osmolality,Calculated 293 (280-300); Potassium 3.3 mEq/L (3.5-4.5); Sodium 139 mEq/L (136-145); eGFR For African Americans > 60 (> 60); eGFR For Non-African Americans 50 (> 60)
[2016-07-10] MEDS: Insulin LISPRO 300 UNITS/3 ML VIAL SQ SCH ×3 (08:05→18:28)
[2016-07-10] MEDS: BuPROPion XL (24 HR) 150 MG TABLET PO SCH (08:06)
[2016-07-10] MEDS: Insulin DETEMIR 100 UNIT/ML X5UNITS SQ SCH (08:09)
--- NOTE | 2016-07-10 10:14 | Internal Med Progress Note ---
Date of Encounter: 07/10/16 Time of Encounter: 09:00 - Assessment and plan (1) Severe sepsis Current Visit: Yes Status: Resolved (2) Bacteremia Current Visit: Yes Status: Acute (3) Pyelonephritis, acute Current Visit: Yes Status: Acute (4) Acute metabolic encephalopathy Current Visit: Yes Status: Acute (5) FIDENCIO (acute kidney injury) Current Visit: Yes Status: Acute (6) Diabetes mellitus Current Visit: Yes Status: Chronic Qualifiers: Diabetes mellitus type: type 2 Diabetes mellitus complication status: with hyperglycemia Diabetes mellitus usp insulin use: with joint terminal attack controller use Qualified Code(s): E11.65 - Type 2 diabetes mellitus with hyperglycemia; Z79.4 - jail (current) use of insulin (7) DVT prophylaxis Current Visit: Yes Status: Acute - Subjective Interval history: Ms Mendes is currently admitted for acute metabolic encephalopathy and UTI. She is high risk due to E. coli bacteremia and need for IV abx as well as potential for worsening infectious status. No significant event noted overnight. Patient was seen and examined this morning. Patient reports still sick but states maybe better compared to yesterday. Patient is alert and orient to person, place and part of time (year) , which is a significant improvement as she was alert and orient to person only yesterday. Patient denies fever, shortness of breath, chest pain, abdominal pain , nausea, vomiting, diarrhea, dysuria. - Constitutional Vitals: Temp Pulse Resp BP Pulse Ox 98.1 F 93 19 165/86 95 07/09/16 20:21 07/10/16 05:17 07/10/16 05:17 07/10/16 05:17 07/10/16 08:20 General appearance: Present: cooperative, A&O X 3 (to person, place and part of time (year)), no acute distress, answers questions appropriately Internal Medicine: Result - Labs CBC & Chem 7: 07/09/16 03:01 07/10/16 03:04 Labs: BMP 07/10/16 03:04 Sodium 139 Potassium 3.3 L Chloride 110 H Carbon Dioxide 19 BUN 11 Creatinine 1.08 Glucose 204 H Calcium 8.5 L - ABG Interpretation ABG results: PT/INR, D-dimer PT 16.6 Seconds (9.4-12.1) H 07/06/16 00:41 Consult Discharge Plan - Plan Additional Instructions: dr healy pcp request made on 07/06 Referrals: Mirlande Healy MD [Primary Care Provider] - 07/10/16 10:00 am
[2016-07-10] MEDS ORDERED: levoFLOXacin 750 MG TABLET PO SCH (11:45)
--- NOTE | 2016-07-10 16:08 | Discharge Summary ---
<Anita Sierra - Last Filed: 07/10/16 16:44> Date of Encounter: 07/10/16 Time of Encounter: 10:00 - Discharge Diagnosis (1) Bacteremia Priority: Primary Status: Acute Comments: E. coli bacteremia most likely from bilateral pyelonephritis. (2) Pyelonephritis, acute Priority: Primary Status: Acute (3) Severe sepsis Priority: Secondary Status: Resolved (4) Acute metabolic encephalopathy Priority: Secondary Status: Acute (5) FIDENCIO (acute kidney injury) Priority: Secondary Status: Acute (6) Diabetes mellitus Priority: Secondary Status: Chronic Qualifiers: Diabetes mellitus type: type 2 Diabetes mellitus complication status: with hyperglycemia Diabetes mellitus intermodal customer service insulin use: with intermodal customer service use Qualified Code(s): E11.65 - Type 2 diabetes mellitus with hyperglycemia; Z79.4 - long term care phlebotomist (current) use of insulin - Discharge Medications Prescriptions: levoFLOXacin [Levofloxacin] 750 mg PO Q48H #4 tablet Home Medications: Acarbose [Precose] 25 mg PO TIDWM 02/02/15 [History] Apremilast [Otezla] 30 mg PO BID 02/02/15 [History] Aspirin Enteric Coated [Aspirin EC] 81 mg PO DAILY 02/02/15 [History] Donepezil [Aricept] 5 mg PO HS 02/02/15 [History] Furosemide [Lasix] 20 mg PO DAILY 02/02/15 [History] Gabapentin [Neurontin] 300 mg PO BID 02/02/15 [History] Insulin ASPART [NovoLOG] 20 - 25 unit SQ TIDAC 02/02/15 [History] Insulin Glargine [Lantus] 50 unit SQ BID 02/02/15 [History] Metformin [Glucophage] 500 mg PO BID 02/02/15 [History] Omeprazole [PriLOSEC] 40 mg PO DAILY 02/02/15 [History] Oxybutynin Chloride [Ditropan Xl] 10 mg PO DAILY 02/02/15 [History] Potassium Chloride 20 meq PO DAILY 02/02/15 [History] Sucralfate [Carafate] 1 gm PO TID 02/02/15 [History] TraMADol [Ultram] 50 mg PO Q4H PRN 02/02/15 [History] BuPROPion XL (24 HR) [Wellbutrin Xl] 150 mg PO DAILY 12/16/15 [History] Paroxetine HCl [Paxil] 40 mg PO DAILY 12/16/15 [History] Rosuvastatin [Crestor] 40 mg PO HS 12/16/15 [History] Trospium Chloride 20 mg PO HS 12/16/15 [History] levoFLOXacin [Levofloxacin] 750 mg PO Q48H #4 tablet 07/10/16 [Rx] Allergies/Adverse Reactions: Allergies heparin Allergy (Verified 12/30/15 13:48) HIT "HIT" PER [facility] Verapamil [From [facility]] Adverse Reaction (Verified 02/02/15 13:13) Rash Date of admission: 07/06/16 05:27 Primary care physician: Mirlande Healy, Consults: 07/10/16 09:58 Consult to Physical Therapy [CONS] Routine Comment: Evaluate, develop and implement POC Reason for Consult: Discharge planning. OT [Consult to Occupational Therapy] [CONS] Routine Comment: Evaluate, develop and implement POC Reason for Consult: Discharge planning Discharging clinician: Anita Sierra Anticipated date of discharge: 07/10/16 - Patient Status Disposition: Home, Self-Care Condition: Fair Functional capacity at discharge: independent ambulation Overall status at discharge: patient is progressing back to baseline - Discharge Instructions Instructions: Urinary Tract Infection in Women (DC), Sepsis (DC) Follow Up With: Mirlande Healy MD [Primary Care Provider] - 07/14/16 10:45 am (Follow up with PCP within a week after discharge.) Additional Instructions: Please take levofloxacin 750 mg by mouth every 48 hours (4 more pills to go starting 07/12/16 12 pm) to finish your total 14-day course of antibiotic treatment for kidney infection. Please follow up with your primary care physician Dr. Healy within a week after discharge. - Diet and Activity Activity: increase activity as tolerated Diet: diabetic diet Hospital course: Ms. Mendes is a 71 year old female with PMH of recurrent UTI, DM, HTN and history of kidney stones. Patient presented with altered mental status and generalized weakness, which are typically UTI symptoms for patient. Patient was noted to have fever, tachycardia and FIDENCIO in ED and admitted on 07/06/16 for severe sepsis secondary to UTI. CT A/P found bilateral perinephric stranding with trace hydronephrosis suggestive of pyelonephritis but no overt obstruction. Patient was initially started on IV ceftriaxone (07/06 & 07/07) but later switched to levofloxacin on 07/08 as urine culture grew E. coli (almost hall -sensitive except resistant to ampicillin and intermediate to ampicillin/ sulbactam). Blood cultures (03/30) on admission also grew hall-sensitive E. coli. Patient's mental status improves significantly with antibiotic and is afebrile after 07/06. Given patient's significant clinical improvement and remains hemodynamically stable, will discharge patient home with levofloxacin 750 mg PO q48 (4 more pills to go starting 07/12/16 12 pm) to finish total 14-day course of antibiotic treatment for pyelonephritis. Patient will also need to follow up with her PCP Dr. Healy within a week of discharge. - Time Spent with Patient Total time spent providing and/or coordinating discharge services: Greater than 30 minutes - Constitutional Vitals: Temp Pulse Resp BP Pulse Ox 98.1 F 96 20 170/86 95 07/09/16 20:21 07/10/16 11:00 07/10/16 11:00 07/10/16 11:00 07/10/16 08:20 General appearance: Present: cooperative, A&O X 3 (to person, place and part of time (year)), no acute distress, answers questions appropriately - Head Head exam: Present: atraumatic, normocephalic - Eye Eye exam: Present: EOMI, PERRL, conjuntiva pink, sclera anicteric - Neck Neck exam general surgery: Present: supple, trachea midline. Absent: lymphadenopathy - Respiratory Respiratory exam: Present: CTAB. Absent: accessory muscle use, rales, rhonchi, wheezes - Cardiovascular Cardiovascular exam: Present: RRR, +S1, +S2. Absent: diastolic murmur, gallop, rubs, systolic murmur - GI/Abdominal GI/Abdominal exam: Present: normal bowel sounds, soft, no peritoneal signs. Absent: distended, tenderness - Extremities Exam Extremities exam: Present: warm, radial pulses palpable and symetrical. Absent : calf tenderness, cyanotic, pedal edema - Neurological Exam Neurological exam: Present: CN II-XII intact, oriented X3, no focal deficits. Absent: pronater drift, facial droop, speech deficit - Skin Skin exam: Present: dry, intact, warm <Kyle,[place] Rebecca - Last Filed: 07/10/16 17:25> Date of Encounter: 07/10/16 - Discharge Diagnosis (1) Pyelonephritis, acute Priority: Primary Status: Acute (2) E. coli sepsis Priority: Primary Status: Resolved (3) Severe sepsis Priority: Secondary Status: Resolved (4) Hypokalemia Priority: Secondary Status: Resolved (5) Hypomagnesemia Priority: Secondary Status: Resolved (6) Acute metabolic encephalopathy Priority: Secondary Status: Resolved (7) FIDENCIO (acute kidney injury) Priority: Secondary Status: Resolved (8) Diabetes mellitus Priority: Secondary Status: Chronic Qualifiers: Diabetes mellitus type: type 2 Diabetes mellitus complication status: with hyperglycemia Diabetes mellitus intermodal customer service insulin use: with intermodal customer service use Qualified Code(s): E11.65 - Type 2 diabetes mellitus with hyperglycemia; Z79.4 - jail (current) use of insulin (9) HTN (hypertension) Priority: Secondary Status: Chronic Qualifiers: Hypertension type: essential hypertension Qualified Code(s): I10 - Essential (primary) hypertension Date of admission: 07/06/16 05:27 Primary care physician: Mirlande Healy, Consults: 07/10/16 09:58 Consult to Physical Therapy [CONS] Routine Comment: Evaluate, develop and implement POC Reason for Consult: Discharge planning. OT [Consult to Occupational Therapy] [CONS] Routine Comment: Evaluate, develop and implement POC Reason for Consult: Discharge planning Hospital course: Ms. Mendes is a 71 year old female - Time Spent with Patient Total time spent providing and/or coordinating discharge services: 42min - Constitutional Vitals: Temp Pulse Resp BP Pulse Ox 98.6 F 102 16 138/81 97 07/10/16 16:41 07/10/16 16:41 07/10/16 16:41 07/10/16 16:41 07/10/16 16:41 - Attending Attestation I examined this patient and my medical decision-making was reviewed with the Resident Physician on 07/10/16. I agree with the documented findings, disposition and treatment plan as described except to the extent set forth below. Ms Mendes is doing well today. She is up and has no needs. She is afebrile and vitals are stable. At this time she is ready for discharge home with outpatient follow up. Exam alert. Comfortable Heart reg Lungs clear Plan D/C home today. Complete 14days of abx total.
[2016-07-10 16:42] VITALS: BP 138/81
== END 2016-07-10 19:58 | disposition home or self-care (01) | DRG 871 ==
LOC: EMEROO 00:25 → 2NENU 00:25 → SUATTDRO 05:27
PROVIDERS: ADMIT Registered Nurse; ATTEND Internal Medicine

== ENCOUNTER 2019-09-04 07:59 | Observation (INO) ==
[2019-09-04] MEDS ORDERED: Ondansetron 4 MG/2 ML VIAL IVP ONE (09:13)
[2019-09-04] MEDS ORDERED: *HR* FentaNYL (PF) 100 MCG/2 ML VIAL IVP STA (09:14)
[2019-09-04 10:15] LABS: Hematocrit 35.3 % (35.3-44.9); Hemoglobin 10.4 g/dL (11.5-15.4); Mean Corpuscular HGB Conc 29.5 g/dL (31.6-35.5); Mean Corpuscular Hemoglobin 23.7 pg (28.0-33.3); Mean Corpuscular Volume 80.6 fL (83.0-100.0); Mean Platelet Volume 10.6 fL (9.4-12.4); Platelet Count 121 K/mcL (140-400); Red Blood Count 4.38 M/mcL (3.82-4.97)
[2019-09-04 10:38] LABS: BUN/Creatinine Ratio 14 (6-26); Blood Urea Nitrogen 15 mg/dL (8-23); Calcium 9.8 mg/dL (8.6-10.3); Carbon Dioxide 26 mEq/L (23-29); Chloride 106 mEq/L (98-107); Glucose 184 mg/dL (70-105); Osmolality,Calculated 290 (280-300); Potassium 3.9 mEq/L (3.5-5.1); Sodium 137 mEq/L (136-145); eGFR For African Americans > 60 (> 60); eGFR For Non-African Americans 50 (> 60)
[2019-09-04] MEDS ORDERED: Naloxone 0.4 MG/ML INJ IVP PRN (10:49)
[2019-09-04] MEDS ORDERED: Dextrose Gel 15 GM/37.5 ML TUBE PO PRN ×2 (12:24)
[2019-09-04] MEDS ORDERED: *HR* Dextrose 50 % in Water (Vial) 50 ML VIAL IVP PRN (12:24)
[2019-09-04] MEDS ORDERED: D5% in Water 1,000 ML IVC PRN (12:24)
[2019-09-04] MEDS: *HR* OxyCODONE/APAP 7.5/325 TABLET PO PRN ×2 (12:58→16:59)
[2019-09-04] MEDS ORDERED: INSULIN ASPART 22 UNIT SQ SCH (17:00)
[2019-09-04] MEDS: Insulin LISPRO 300 UNITS/3 ML VIAL SQ SCH ×2 (17:01)
[2019-09-04] MEDS: Gabapentin 300 MG CAPSULE PO SCH (20:03)
[2019-09-04] MEDS: Aspirin Enteric Coated 81 MG Tablet PO SCH (20:03)
[2019-09-04] MEDS: Insulin DETEMIR 100 UNIT/ML X5UNITS SQ SCH (20:03)
[2019-09-04] MEDS ORDERED: NON-FORMULARY MEDICATION 1 EACH EACH (Trospium Chloride 20 MG) PO SCH (21:00)
[2019-09-05] MEDS: *HR* OxyCODONE/APAP 7.5/325 TABLET PO PRN ×3 (00:09→20:56)
[2019-09-05 01:52] LABS: Red Cell Distribution Width 18.2 % (11.5-14.5)
[2019-09-05 01:54] LABS: Basophils % 0.7 %; Eosinophils # 0.1 K/mcL (0.0-0.6); Eosinophils % 2.2 %; Hematocrit 31.6 % (35.3-44.9); Hemoglobin 9.4 g/dL (11.5-15.4); Immature Granulocytes % 0.5 % (0-4); Immature Platelets 3.4 % (1.1-6.1); Lymphocytes # 1.7 K/mcL (0.6-4.6); Lymphocytes % 29.2 %; Mean Corpuscular HGB Conc 29.7 g/dL (31.6-35.5); Mean Corpuscular Hemoglobin 23.3 pg (28.0-33.3); Mean Corpuscular Volume 78.4 fL (83.0-100.0); Monocytes # 0.6 K/mcL (0.0-1.3); Monocytes % 9.8 %; Platelet Count 104 K/mcL (140-400); Red Blood Count 4.03 M/mcL (3.82-4.97); Segmented Neutrophils % 57.6 %; White Blood Count 5.8 K/mcL (4.3-11.1)
[2019-09-05 02:01] LABS: Neutrophils # 3.3 K/mcL (1.6-8.9)
[2019-09-05 02:06] LABS: Calcium 9.2 mg/dL (8.6-10.3); Potassium 4.5 mEq/L (3.5-5.1)
[2019-09-05] MEDS ORDERED: NON-FORMULARY MEDICATION 1 EACH EACH (Omeprazole 40 MG) PO SCH (09:00)
[2019-09-05] MEDS ORDERED: Aspirin Enteric Coated 81 MG Tablet PO SCH (09:00)
[2019-09-05] MEDS: PARoxetine 20 MG TABLET PO SCH (09:18)
[2019-09-05] MEDS: cephALEXin 250 MG CAPSULE PO SCH (09:18)
[2019-09-05] MEDS: Gabapentin 300 MG CAPSULE PO SCH ×2 (09:19→20:56)
[2019-09-05] MEDS: Aspirin Enteric Coated 81 MG Tablet PO SCH ×2 (09:19→20:56)
[2019-09-05] MEDS: Lactobacillus 1 EACH CAP.SPRINK PO SCH (09:19)
[2019-09-05] MEDS: Multivit/Ca/Min/Fe/FA 1 TAB TABLET PO SCH (09:19)
[2019-09-05] MEDS: Furosemide 20 MG TABLET PO SCH (09:28)
[2019-09-05] MEDS: Insulin DETEMIR 100 UNIT/ML X5UNITS SQ SCH ×2 (09:36→20:56)
[2019-09-05] MEDS: Insulin LISPRO 300 UNITS/3 ML VIAL SQ SCH ×6 (09:36→17:51)
[2019-09-05 14:15] LABS: Folate > 22.3 ng/mL (3.0-16.0); Vitamin B12 > 1500 pg/mL (250-1100)
[2019-09-05] MEDS: Iron Polysaccharide Complex 150 MG CAPSULE PO SCH (15:37)
[2019-09-06] MEDS: Insulin LISPRO 300 UNITS/3 ML VIAL SQ SCH ×2 (07:45→09:12)
[2019-09-06] MEDS: Gabapentin 300 MG CAPSULE PO SCH (09:10)
[2019-09-06] MEDS: cephALEXin 250 MG CAPSULE PO SCH (09:10)
[2019-09-06] MEDS: Aspirin Enteric Coated 81 MG Tablet PO SCH (09:10)
[2019-09-06] MEDS: PARoxetine 20 MG TABLET PO SCH (09:10)
[2019-09-06] MEDS: Lactobacillus 1 EACH CAP.SPRINK PO SCH (09:11)
[2019-09-06] MEDS: Multivit/Ca/Min/Fe/FA 1 TAB TABLET PO SCH (09:11)
[2019-09-06] MEDS: Furosemide 20 MG TABLET PO SCH (09:11)
[2019-09-06] MEDS: Insulin DETEMIR 100 UNIT/ML X5UNITS SQ SCH (09:17)
[2019-09-06] MEDS: *HR* OxyCODONE/APAP 7.5/325 TABLET PO PRN ×2 (09:31→15:11)
[2019-09-06] MEDS ORDERED: polyethylene glycoL 3350 17 GM POWD.PACK PO ONE (09:47)
[2019-09-06] MEDS: Iron Polysaccharide Complex 150 MG CAPSULE PO SCH (10:58)
[2019-09-06 11:21] VITALS: BP 124/66
[2019-09-06 14:08] LABS: Basophils % 0.6 %; Eosinophils # 0.2 K/mcL (0.0-0.6); Eosinophils % 2.4 %; Hematocrit 31.6 % (35.3-44.9); Hemoglobin 9.3 g/dL (11.5-15.4); Immature Granulocytes % 0.3 % (0-4); Lymphocytes # 2.2 K/mcL (0.6-4.6); Lymphocytes % 32.2 %; Mean Corpuscular HGB Conc 29.4 g/dL (31.6-35.5); Mean Corpuscular Volume 81.4 fL (83.0-100.0); Monocytes # 0.8 K/mcL (0.0-1.3); Monocytes % 11.2 %; Neutrophils # 3.6 K/mcL (1.6-8.9); Platelet Count 122 K/mcL (140-400); Red Blood Count 3.88 M/mcL (3.82-4.97); Red Cell Distribution Width 18.7 % (11.5-14.5); Segmented Neutrophils % 53.3 %; White Blood Count 6.7 K/mcL (4.3-11.1)
[2019-09-06 14:27] LABS: Potassium 4.3 mEq/L (3.5-5.1)
== END 2019-09-06 15:13 | disposition home health service (06) ==
LOC: 3NENU 07:59 → EMEROOARM 07:59 → INTOOBSV 11:14 → 3NENU 12:02
PROVIDERS: ADMIT Internal Medicine; ATTEND Internal Medicine

== ENCOUNTER 2020-07-28 13:05 | Inpatient (IN) ==
[2020-07-28] MEDS ORDERED: *HR* Dextrose 50 % in Water (Vial) 50 ML VIAL ONE (13:13)
[2020-07-28] MEDS ORDERED: *HR* Dextrose 50 % in Water (Vial) 50 ML VIAL IVP ONE ×2 (13:21→15:08)
[2020-07-28] MEDS ORDERED: cefTRIAXone 1,000 MG in 0.9 % Sodium Chloride Mini Bag 100 ML IVPB ONE (13:23)
[2020-07-28] MEDS ORDERED: 0.9 % Sodium Chloride 1,000 ML IVC SCH (13:30)
[2020-07-28 13:55] LABS: Bacteria,Urine Few per hpf (None-Few); Bilirubin,Urine Negative (Negative); Blood,Urine Large (Negative); Clarity,Urine Ex.Turbid (Clear); Color,Urine Light-Orange (Yellow); Glucose,Urine (UA) 200 mg/dL (Normal); Ketones,Urine Negative (Negative); Leukocyte Esterase,Urine Large (Negative); Mucus,Urine Few per lpf (None-Few); Nitrite,Urine Negative (Negative); PH,Urine 7.5 pH Units (5.0-8.0); Protein,Urine 100 mg/dL (Neg-Trace); RBC,Urine TNTC per hpf (0-3); Specific Gravity,Urine 1.018 (1.010-1.025); Squamous Epithelial Cell,Urine Few per hpf (None-Few); Transitional Epi Cells,Urine Few per hpf (None-Few); WBC,Urine TNTC per hpf (0-3)
[2020-07-28 14:45] LABS: Basophils % 0.1 %; Eosinophils % 0.1 %; Hemoglobin 12.6 g/dL (11.5-15.4); Immature Granulocytes % 0.6 % (0-4); Lymphocytes # 0.8 K/mcL (0.6-4.6); Lymphocytes % 9.4 %; Mean Corpuscular HGB Conc 31.5 g/dL (31.6-35.5); Mean Corpuscular Hemoglobin 26.7 pg (28.0-33.3); Mean Corpuscular Volume 84.7 fL (83.0-100.0); Mean Platelet Volume 9.4 fL (9.4-12.4); Monocytes # 0.8 K/mcL (0.0-1.3); Monocytes % 9.2 %; Neutrophils # 7.2 K/mcL (1.6-8.9); Platelet Count 177 K/mcL (140-400); Red Blood Count 4.72 M/mcL (3.82-4.97); Red Cell Distribution Width 15.9 % (11.5-14.5); Segmented Neutrophils % 80.6 %
[2020-07-28 14:53] LABS: Alanine Aminotransferase 30 Units/L (7-52); Albumin 2.4 g/dL (3.5-5.7); Albumin/Globulin Ratio 0.5 (1.1-2.2); Alkaline Phosphatase 235 Units/L (34-104); Aspartate Amino Transferase 43 Units/L (13-39); BUN/Creatinine Ratio 23 (6-26); Bilirubin,Direct 0.3 mg/dL (0.0-0.2); Bilirubin,Indirect 0.7 mg/dL (0.0-1.0); Blood Urea Nitrogen 19 mg/dL (8-23); Calcium 8.8 mg/dL (8.6-10.3); Carbon Dioxide 25 mEq/L (23-29); Chloride 108 mEq/L (98-107); Globulin 4.5 g/dL (2.4-3.5); Glucose 67 mg/dL (70-105); Lipase 51 Units/L (11-82); Osmolality,Calculated 289 (280-300); Potassium 3.4 mEq/L (3.5-5.1); Sodium 139 mEq/L (136-145); Total Protein 6.9 g/dL (6.4-8.9); eGFR For African Americans > 60 (> 60); eGFR For Non-African Americans > 60 (> 60)
[2020-07-28] MEDS ORDERED: D5% in 0.9% NACL 1,000 ML IVC SCH ×2 (15:15→17:17)
[2020-07-28] MEDS ORDERED: *HR* FentaNYL (PF) 100 MCG/2 ML VIAL IVP ONE (16:34)
[2020-07-28] MEDS ORDERED: Naloxone 0.4 MG/ML INJ IVP PRN (17:14)
[2020-07-28] MEDS ORDERED: Ondansetron 4 MG/2 ML VIAL IVP PRN (17:14)
[2020-07-28 17:31] LABS: VBG HCO3 25 mEq/L (21-27); VBG PCO2 37 mmHg (41-51); VBG PH 7.44 pH Units (7.32-7.42); VBG PO2 96 mmHg (25-50)
[2020-07-28] MEDS: *HR* Dextrose 50 % in Water (Vial) 50 ML VIAL IVP PRN ×4 (17:38→23:39)
[2020-07-28 17:46] LABS: Troponin I < 0.03 ng/mL (< 0.04)
[2020-07-28] MEDS ORDERED: Dextrose Gel 15 GM/37.5 ML TUBE PO PRN ×2 (17:54)
[2020-07-28] MEDS ORDERED: D5% in Water 1,000 ML IVC PRN (17:54)
[2020-07-28] MEDS: D5% in 0.9% NACL 1,000 ML IVC SCH (18:10)
[2020-07-28 20:09] LABS: Influenza A PCR Negative (Negative); Influenza B PCR Negative (Negative); Resp. Syncytial Virus PCR Negative (Negative); SARS-CoV-2 by PCR (In House) Negative (Negative)
[2020-07-29] MEDS: *HR* Dextrose 50 % in Water (Vial) 50 ML VIAL IVP PRN ×4 (00:42→10:14)
[2020-07-29] MEDS: D5% in 0.9% NACL 1,000 ML IVC SCH (02:13)
[2020-07-29] MEDS ORDERED: Acetaminophen 325 MG TABLET PO ONE (02:54)
[2020-07-29 05:48] LABS: Basophils % 0.3 %; Eosinophils # 0.1 K/mcL (0.0-0.6); Eosinophils % 1.1 %; Hematocrit 33.6 % (35.3-44.9); Immature Granulocytes % 0.3 % (0-4); Lymphocytes % 16.4 %; Mean Corpuscular HGB Conc 32.1 g/dL (31.6-35.5); Mean Corpuscular Hemoglobin 26.8 pg (28.0-33.3); Mean Corpuscular Volume 83.4 fL (83.0-100.0); Mean Platelet Volume 9.3 fL (9.4-12.4); Monocytes # 0.7 K/mcL (0.0-1.3); Monocytes % 11.1 %; Neutrophils # 4.3 K/mcL (1.6-8.9); Platelet Count 157 K/mcL (140-400); Red Blood Count 4.03 M/mcL (3.82-4.97); Red Cell Distribution Width 15.9 % (11.5-14.5); Segmented Neutrophils % 70.8 %; White Blood Count 6.1 K/mcL (4.3-11.1)
[2020-07-29 05:49] LABS: Hemoglobin 10.8 g/dL (11.5-15.4)
[2020-07-29 05:54] LABS: INR 1.6; Prothrombin Time 18.2 Seconds (9.4-12.1)
[2020-07-29 06:10] LABS: BUN/Creatinine Ratio 20 (6-26); Blood Urea Nitrogen 17 mg/dL (8-23); Calcium 8.1 mg/dL (8.6-10.3); Carbon Dioxide 23 mEq/L (23-29); Chloride 112 mEq/L (98-107); Glucose 99 mg/dL (70-105); Osmolality,Calculated 292 (280-300); Phosphorous 2.9 mg/dL (2.7-4.5); Potassium 3.2 mEq/L (3.5-5.1); Sodium 140 mEq/L (136-145); eGFR For African Americans > 60 (> 60); eGFR For Non-African Americans > 60 (> 60)
[2020-07-29 06:12] LABS: Albumin 2.1 g/dL (3.5-5.7); Albumin/Globulin Ratio 0.6 (1.1-2.2); Bilirubin,Direct 0.3 mg/dL (0.0-0.2); Bilirubin,Indirect 0.5 mg/dL (0.0-1.0); Bilirubin,Total 0.8 mg/dL (0.3-1.0); Globulin 3.7 g/dL (2.4-3.5); Total Protein 5.8 g/dL (6.4-8.9)
[2020-07-29 06:32] LABS: Hepatitis B Surface Antigen Nonreactive (Nonreactive)
[2020-07-29 07:01] LABS: Hepatitis B Core IgM Nonreactive (Nonreactive)
[2020-07-29 07:02] LABS: Hepatitis C Virus Antibody Nonreactive (Nonreactive)
[2020-07-29 07:03] LABS: Hepatitis A Antibody IgM Nonreactive (Nonreactive)
[2020-07-29] MEDS: Pantoprazole 40 MG VIAL IVP SCH (09:43)
[2020-07-29] MEDS: Lactulose Oral Soln 20 GM/30 ML UDC PO SCH ×3 (09:43→20:25)
[2020-07-29] MEDS: Albumin 25% 25gram/100mL 25 GM/100 ML IV.SOLN IVPB SCH ×2 (10:30→17:05)
[2020-07-29 11:38] LABS: BUN/Creatinine Ratio 20 (6-26); Blood Urea Nitrogen 17 mg/dL (8-23); Calcium 7.9 mg/dL (8.6-10.3); Carbon Dioxide 23 mEq/L (23-29); Chloride 114 mEq/L (98-107); Glucose 87 mg/dL (70-105); Osmolality,Calculated 295 (280-300); Potassium 3.6 mEq/L (3.5-5.1); Sodium 142 mEq/L (136-145); eGFR For African Americans > 60 (> 60); eGFR For Non-African Americans > 60 (> 60)
[2020-07-29 15:58] LABS: Enterococcus by PCR Not Detected (Not Detect); mecA Methicillin-Resist Gene DETECTED (Not Detect)
[2020-07-29 15:59] LABS: Acinetobacter baumannii by PCR Not Detected (Not Detect); Candida albicans by PCR Not Detected (Not Detect); Candida glabrata by PCR Not Detected (Not Detect); Candida krusei by PCR Not Detected (Not Detect); Candida parapsilosis by PCR Not Detected (Not Detect); Candida tropicalis by PCR Not Detected (Not Detect); Enterobacter cloacae Cmplx PCR Not Detected (Not Detect); Enterobacteriaceae by PCR Not Detected (Not Detect); Escherichia coli by PCR Not Detected (Not Detect); Klebsiella oxytoca by PCR Not Detected (Not Detect); Klebsiella pneumoniae by PCR Not Detected (Not Detect); Proteus by PCR Not Detected (Not Detect); Pseudomonas aeruginosa by PCR Not Detected (Not Detect); Serratia marcescens by PCR Not Detected (Not Detect); Staphylococcus aureus by PCR Not Detected (Not Detect); Staphylococcus by PCR DETECTED (Not Detect); Streptococcus agalactiae(B)PCR Not Detected (Not Detect); Streptococcus by PCR Not Detected (Not Detect); Streptococcus pneumoniae PCR Not Detected (Not Detect); Streptococcus pyogenes (A) PCR Not Detected (Not Detect)
[2020-07-29] MEDS: cefTRIAXone 1,000 MG in Water for inj. (sterile) 10 ML IVP SCH (16:04)
[2020-07-29] MEDS ORDERED: Vancomycin 1,500 MG/265 ML IV.SOLN IVPB SCH (17:00)
[2020-07-29 17:23] LABS: RBC,Peritoneal Fluid 6000 RBC/mcL
[2020-07-29 18:51] LABS: Appearance of Peritoneal Fl CLOUDY (Clear); Basophils,Peritoneal Fluid 0 %; Eosinophils,Peritoneal Fluid 0 %
[2020-07-29] MEDS ORDERED: *HR* Dextrose 50 % in Water (Vial) 50 ML VIAL IVP PRN (19:05)
[2020-07-29] MEDS ORDERED: Dextrose Gel 15 GM/37.5 ML TUBE PO PRN ×2 (19:05)
[2020-07-29] MEDS ORDERED: D5% in Water 1,000 ML IVC PRN (19:05)
[2020-07-29] MEDS: Insulin LISPRO 300 UNITS/3 ML VIAL SUBQ SCH ×2 (20:24→22:29)
[2020-07-30] MEDS: Albumin 25% 25gram/100mL 25 GM/100 ML IV.SOLN IVPB SCH ×3 (00:54→17:32)
[2020-07-30 04:20] LABS: Basophils % 0.6 %; Eosinophils # 0.2 K/mcL (0.0-0.6); Eosinophils % 2.8 %; Hematocrit 34.2 % (35.3-44.9); Hemoglobin 10.5 g/dL (11.5-15.4); Immature Granulocytes % 0.2 % (0-4); Lymphocytes # 1.4 K/mcL (0.6-4.6); Lymphocytes % 26.1 %; Mean Corpuscular HGB Conc 30.7 g/dL (31.6-35.5); Mean Corpuscular Hemoglobin 26.2 pg (28.0-33.3); Mean Corpuscular Volume 85.3 fL (83.0-100.0); Mean Platelet Volume 9.1 fL (9.4-12.4); Monocytes # 0.6 K/mcL (0.0-1.3); Monocytes % 11.2 %; Neutrophils # 3.2 K/mcL (1.6-8.9); Platelet Count 141 K/mcL (140-400); Red Blood Count 4.01 M/mcL (3.82-4.97); Red Cell Distribution Width 16.1 % (11.5-14.5); Segmented Neutrophils % 59.1 %; White Blood Count 5.5 K/mcL (4.3-11.1)
[2020-07-30 04:32] LABS: % Iron Saturation 18 % (15-50); Alanine Aminotransferase 29 Units/L (7-52); Albumin 2.7 g/dL (3.5-5.7); Albumin/Globulin Ratio 0.9 (1.1-2.2); Alkaline Phosphatase 195 Units/L (34-104); Aspartate Amino Transferase 52 Units/L (13-39); BUN/Creatinine Ratio 19 (6-26); Bilirubin,Direct 0.3 mg/dL (0.0-0.2); Bilirubin,Indirect 0.6 mg/dL (0.0-1.0); Bilirubin,Total 0.9 mg/dL (0.3-1.0); Blood Urea Nitrogen 16 mg/dL (8-23); Carbon Dioxide 23 mEq/L (23-29); Chloride 113 mEq/L (98-107); Glucose 108 mg/dL (70-105); Iron 30 mcg/dL (50-170); Osmolality,Calculated 292 (280-300); Potassium 3.6 mEq/L (3.5-5.1); Sodium 140 mEq/L (136-145); Total Protein 5.7 g/dL (6.4-8.9); Transferrin 118 mg/dL (203-362); eGFR For African Americans > 60 (> 60); eGFR For Non-African Americans > 60 (> 60)
[2020-07-30 04:35] LABS: INR 1.7; Prothrombin Time 19.5 Seconds (9.4-12.1)
[2020-07-30 04:49] LABS: Ferritin 46 ng/mL (10-120)
[2020-07-30 04:55] LABS: Folate 13.2 ng/mL (3.0-16.0)
[2020-07-30] MEDS: Insulin LISPRO 300 UNITS/3 ML VIAL SUBQ SCH ×4 (07:08→21:34)
[2020-07-30] MEDS: Lactulose Oral Soln 20 GM/30 ML UDC PO SCH ×3 (07:39→21:36)
[2020-07-30] MEDS: Pantoprazole 40 MG VIAL IVP SCH (07:39)
[2020-07-30 12:18] LABS: Estimated Average Glucose 272 mg/dl; Hemoglobin A1C 11.1 %
[2020-07-30] MEDS ORDERED: Perflutren Lipid Microsphere 1.3 ML in 0.9 % Sodium Chloride 8.7 ML IVP PRN (16:11)
[2020-07-30] MEDS: Vancomycin 1,250 MG/262.5 ML IV.SOLN IVPB SCH (16:31)
[2020-07-30] MEDS: cefTRIAXone 1,000 MG in Water for inj. (sterile) 10 ML IVP SCH (16:31)
[2020-07-30] MEDS: *HR* Dextrose 50 % in Water (Vial) 50 ML VIAL IVP PRN (17:32)
[2020-07-31] MEDS: Albumin 25% 25gram/100mL 25 GM/100 ML IV.SOLN IVPB SCH (02:43)
[2020-07-31 03:28] LABS: Basophils % 0.5 %; Eosinophils # 0.2 K/mcL (0.0-0.6); Eosinophils % 3.3 %; Hematocrit 35.8 % (35.3-44.9); Immature Granulocytes % 0.2 % (0-4); Lymphocytes # 1.3 K/mcL (0.6-4.6); Lymphocytes % 21.8 %; Mean Corpuscular HGB Conc 30.7 g/dL (31.6-35.5); Mean Corpuscular Volume 84.6 fL (83.0-100.0); Mean Platelet Volume 9.2 fL (9.4-12.4); Monocytes # 0.5 K/mcL (0.0-1.3); Monocytes % 8.1 %; Neutrophils # 3.9 K/mcL (1.6-8.9); Platelet Count 140 K/mcL (140-400); Red Blood Count 4.23 M/mcL (3.82-4.97); Red Cell Distribution Width 15.9 % (11.5-14.5); Segmented Neutrophils % 66.1 %; White Blood Count 5.8 K/mcL (4.3-11.1)
[2020-07-31 03:40] LABS: BUN/Creatinine Ratio 19 (6-26); Blood Urea Nitrogen 15 mg/dL (8-23); Calcium 8.2 mg/dL (8.6-10.3); Carbon Dioxide 21 mEq/L (23-29); Chloride 112 mEq/L (98-107); Glucose 100 mg/dL (70-105); Magnesium 1.9 mg/dL (1.6-2.6); Osmolality,Calculated 289 (280-300); Potassium 3.5 mEq/L (3.5-5.1); Sodium 139 mEq/L (136-145); eGFR For African Americans > 60 (> 60); eGFR For Non-African Americans > 60 (> 60)
[2020-07-31] MEDS: Pantoprazole 40 MG VIAL IVP SCH (08:43)
[2020-07-31] MEDS: Lactulose Oral Soln 20 GM/30 ML UDC PO SCH ×3 (08:44→20:45)
[2020-07-31] MEDS: Insulin LISPRO 300 UNITS/3 ML VIAL SUBQ SCH ×4 (08:44→20:43)
[2020-07-31] MEDS: cefTRIAXone 1,000 MG in Water for inj. (sterile) 10 ML IVP SCH (15:27)
[2020-07-31] MEDS ORDERED: Vancomycin 2,000 MG/520 ML IV.SOLN IVPB SCH (17:15)
[2020-07-31] MEDS: Nystatin POWDER 30 GM BOTTLE TP SCH ×2 (17:49→19:52)
[2020-07-31] MEDS: Doxycycline 100 MG in 0.9 % Sodium Chloride Mini Bag 100 ML IVPB SCH (19:50)
[2020-08-01 05:51] LABS: Basophils # 0.1 K/mcL (0.0-0.2); Basophils % 0.8 %; Eosinophils # 0.3 K/mcL (0.0-0.6); Eosinophils % 5.1 %; Hematocrit 38.5 % (35.3-44.9); Hemoglobin 11.5 g/dL (11.5-15.4); Immature Granulocytes % 0.3 % (0-4); Lymphocytes # 1.2 K/mcL (0.6-4.6); Mean Corpuscular HGB Conc 29.9 g/dL (31.6-35.5); Mean Corpuscular Hemoglobin 26.1 pg (28.0-33.3); Mean Corpuscular Volume 87.5 fL (83.0-100.0); Mean Platelet Volume 10.2 fL (9.4-12.4); Monocytes # 0.6 K/mcL (0.0-1.3); Monocytes % 10.5 %; Neutrophils # 3.7 K/mcL (1.6-8.9); Platelet Count 113 K/mcL (140-400); Red Cell Distribution Width 16.2 % (11.5-14.5); Segmented Neutrophils % 63.3 %; White Blood Count 5.9 K/mcL (4.3-11.1)
[2020-08-01 06:08] LABS: Alanine Aminotransferase 17 Units/L (7-52); Albumin 2.8 g/dL (3.5-5.7); Alkaline Phosphatase 158 Units/L (34-104); Aspartate Amino Transferase 25 Units/L (13-39); BUN/Creatinine Ratio 21 (6-26); Bilirubin,Direct 0.4 mg/dL (0.0-0.2); Bilirubin,Indirect 0.9 mg/dL (0.0-1.0); Bilirubin,Total 1.3 mg/dL (0.3-1.0); Blood Urea Nitrogen 16 mg/dL (8-23); Calcium 8.2 mg/dL (8.6-10.3); Carbon Dioxide 20 mEq/L (23-29); Chloride 115 mEq/L (98-107); Globulin 2.8 g/dL (2.4-3.5); Glucose 81 mg/dL (70-105); Magnesium 1.9 mg/dL (1.6-2.6); Osmolality,Calculated 290 (280-300); Phosphorous 2.3 mg/dL (2.7-4.5); Potassium 3.5 mEq/L (3.5-5.1); Sodium 140 mEq/L (136-145); Total Protein 5.6 g/dL (6.4-8.9); eGFR For African Americans > 60 (> 60); eGFR For Non-African Americans > 60 (> 60)
[2020-08-01] MEDS: Doxycycline 100 MG in 0.9 % Sodium Chloride Mini Bag 100 ML IVPB SCH (06:16)
[2020-08-01] MEDS: Insulin LISPRO 300 UNITS/3 ML VIAL SUBQ SCH ×4 (08:31→22:37)
[2020-08-01] MEDS: Lactulose Oral Soln 20 GM/30 ML UDC PO SCH ×4 (08:35→22:40)
[2020-08-01] MEDS: Nystatin POWDER 30 GM BOTTLE TP SCH ×3 (08:40→23:38)
[2020-08-01] MEDS: cefTRIAXone 1,000 MG in Water for inj. (sterile) 10 ML IVP SCH (14:56)
[2020-08-02 00:36] LABS: Basophils % 0.6 %; Eosinophils # 0.3 K/mcL (0.0-0.6); Eosinophils % 3.9 %; Hematocrit 37.7 % (35.3-44.9); Hemoglobin 11.8 g/dL (11.5-15.4); Immature Granulocytes % 0.2 % (0-4); Lymphocytes # 1.4 K/mcL (0.6-4.6); Lymphocytes % 21.3 %; Mean Corpuscular HGB Conc 31.3 g/dL (31.6-35.5); Mean Corpuscular Hemoglobin 26.6 pg (28.0-33.3); Mean Corpuscular Volume 84.9 fL (83.0-100.0); Mean Platelet Volume 9.5 fL (9.4-12.4); Monocytes # 0.7 K/mcL (0.0-1.3); Monocytes % 10.4 %; Neutrophils # 4.2 K/mcL (1.6-8.9); Platelet Count 132 K/mcL (140-400); Red Blood Count 4.44 M/mcL (3.82-4.97); Red Cell Distribution Width 16.1 % (11.5-14.5); Segmented Neutrophils % 63.6 %; White Blood Count 6.6 K/mcL (4.3-11.1)
[2020-08-02 00:37] LABS: INR 1.6; Prothrombin Time 18.2 Seconds (9.4-12.1)
[2020-08-02 00:49] LABS: BUN/Creatinine Ratio 19 (6-26); Blood Urea Nitrogen 16 mg/dL (8-23); Calcium 8.2 mg/dL (8.6-10.3); Carbon Dioxide 18 mEq/L (23-29); Chloride 113 mEq/L (98-107); Glucose 223 mg/dL (70-105); Magnesium 1.8 mg/dL (1.6-2.6); Osmolality,Calculated 292 (280-300); Potassium 3.5 mEq/L (3.5-5.1); Sodium 137 mEq/L (136-145); eGFR For African Americans > 60 (> 60); eGFR For Non-African Americans > 60 (> 60)
[2020-08-02 08:17] LABS: Fluid Source for Triglycerides ASCITES FLUID; Triglycerides,Body Fluid 53 mg/dL
[2020-08-02] MEDS: Lactulose Oral Soln 20 GM/30 ML UDC PO SCH ×4 (08:33→22:12)
[2020-08-02] MEDS: Insulin LISPRO 300 UNITS/3 ML VIAL SUBQ SCH ×4 (08:42→22:13)
[2020-08-02 11:13] LABS: Fluid Source for Albumin PERITONEAL
[2020-08-02] MEDS: Nystatin POWDER 30 GM BOTTLE TP SCH ×2 (11:44→22:12)
[2020-08-02] MEDS: cefTRIAXone 1,000 MG in Water for inj. (sterile) 10 ML IVP SCH (14:14)
[2020-08-02] MEDS: Furosemide 40 MG TABLET PO SCH (14:14)
[2020-08-02] MEDS: Vancomycin 1,250 MG/262.5 ML IV.SOLN IVPB SCH (14:53)
[2020-08-03 05:39] LABS: Basophils % 0.6 %; Eosinophils # 0.4 K/mcL (0.0-0.6); Eosinophils % 5.2 %; Hematocrit 38.8 % (35.3-44.9); Hemoglobin 12.4 g/dL (11.5-15.4); Immature Granulocytes % 0.4 % (0-4); Lymphocytes # 1.4 K/mcL (0.6-4.6); Lymphocytes % 19.9 %; Mean Corpuscular Hemoglobin 26.9 pg (28.0-33.3); Mean Corpuscular Volume 84.2 fL (83.0-100.0); Mean Platelet Volume 9.8 fL (9.4-12.4); Monocytes # 0.8 K/mcL (0.0-1.3); Monocytes % 10.9 %; Neutrophils # 4.5 K/mcL (1.6-8.9); Platelet Count 125 K/mcL (140-400); Red Blood Count 4.61 M/mcL (3.82-4.97); Red Cell Distribution Width 16.6 % (11.5-14.5); White Blood Count 7.2 K/mcL (4.3-11.1)
[2020-08-03 05:57] LABS: Alanine Aminotransferase 20 Units/L (7-52); Albumin 2.8 g/dL (3.5-5.7); Alkaline Phosphatase 192 Units/L (34-104); Aspartate Amino Transferase 27 Units/L (13-39); BUN/Creatinine Ratio 15 (6-26); Bilirubin,Direct 0.2 mg/dL (0.0-0.2); Bilirubin,Indirect 0.6 mg/dL (0.0-1.0); Bilirubin,Total 0.8 mg/dL (0.3-1.0); Blood Urea Nitrogen 13 mg/dL (8-23); Calcium 8.3 mg/dL (8.6-10.3); Carbon Dioxide 21 mEq/L (23-29); Chloride 111 mEq/L (98-107); Globulin 2.9 g/dL (2.4-3.5); Glucose 209 mg/dL (70-105); Magnesium 1.9 mg/dL (1.6-2.6); Osmolality,Calculated 292 (280-300); Potassium 3.2 mEq/L (3.5-5.1); Sodium 138 mEq/L (136-145); Total Protein 5.7 g/dL (6.4-8.9); eGFR For African Americans > 60 (> 60); eGFR For Non-African Americans > 60 (> 60)
[2020-08-03] MEDS: Furosemide 40 MG TABLET PO SCH ×3 (09:21→18:18)
[2020-08-03] MEDS: Nystatin POWDER 30 GM BOTTLE TP SCH ×4 (09:21→21:31)
[2020-08-03] MEDS: Insulin LISPRO 300 UNITS/3 ML VIAL SUBQ SCH ×4 (09:26→21:25)
[2020-08-03] MEDS: Lactulose Oral Soln 20 GM/30 ML UDC PO SCH ×4 (09:52→21:42)
[2020-08-03 10:35] LABS: Fluid Source for Bilirubin ASCITES FLUID
[2020-08-03] MEDS ORDERED: TOTAL JOINT MIXTURE (100ML) INTRAART ONE (14:15)
[2020-08-03] MEDS ORDERED: Povidone-Iodine 45 ML, Sodium Chloride IRRigation 1,000 ML IR ONE (14:15)
[2020-08-03] MEDS ORDERED: Isovue-370 500 ML BOTTLE IVP ONE (14:32)
[2020-08-03] MEDS: cefTRIAXone 1,000 MG in Water for inj. (sterile) 10 ML IVP SCH (16:03)
[2020-08-03] MEDS ORDERED: cefTRIAXone 1,000 MG in Water for inj. (sterile) 10 ML IVP ONE (16:21)
[2020-08-03] MEDS ORDERED: *HR* HYDROmorphone 2 MG/ML SYRINGE IVP PRN (16:29)
[2020-08-04 03:14] LABS: Basophils # 0.1 K/mcL (0.0-0.2); Basophils % 0.6 %; Eosinophils # 0.3 K/mcL (0.0-0.6); Hemoglobin 12.1 g/dL (11.5-15.4); Immature Granulocytes % 0.4 % (0-4); Lymphocytes % 25.3 %; Mean Corpuscular Hemoglobin 26.4 pg (28.0-33.3); Mean Corpuscular Volume 85.2 fL (83.0-100.0); Mean Platelet Volume 9.9 fL (9.4-12.4); Monocytes # 0.8 K/mcL (0.0-1.3); Monocytes % 9.9 %; Neutrophils # 4.7 K/mcL (1.6-8.9); Platelet Count 114 K/mcL (140-400); Red Blood Count 4.58 M/mcL (3.82-4.97); Red Cell Distribution Width 17.1 % (11.5-14.5); Segmented Neutrophils % 59.8 %; White Blood Count 7.9 K/mcL (4.3-11.1)
[2020-08-04 03:33] LABS: BUN/Creatinine Ratio 16 (6-26); Blood Urea Nitrogen 12 mg/dL (8-23); Calcium 8.3 mg/dL (8.6-10.3); Carbon Dioxide 23 mEq/L (23-29); Chloride 109 mEq/L (98-107); Glucose 161 mg/dL (70-105); Magnesium 1.7 mg/dL (1.6-2.6); Osmolality,Calculated 289 (280-300); Potassium 3.5 mEq/L (3.5-5.1); Sodium 138 mEq/L (136-145); eGFR For African Americans > 60 (> 60); eGFR For Non-African Americans > 60 (> 60)
[2020-08-04] MEDS: Insulin LISPRO 300 UNITS/3 ML VIAL SUBQ SCH ×4 (08:01→20:24)
[2020-08-04] MEDS: Nystatin POWDER 30 GM BOTTLE TP SCH ×2 (08:15→15:27)
[2020-08-04] MEDS: Lactulose Oral Soln 20 GM/30 ML UDC PO SCH ×3 (08:16→17:31)
[2020-08-04] MEDS: Furosemide 40 MG TABLET PO SCH (08:45)
[2020-08-04] MEDS ORDERED: Spironolactone 25 MG TABLET PO SCH (09:00)
[2020-08-04] MEDS ORDERED: cefTRIAXone 2,000 MG in Water for inj. (sterile) 20 ML IVP SCH (16:00)
[2020-08-04] MEDS ORDERED: cefTRIAXone 2,000 MG in Water for inj. (sterile) 10 ML IVP SCH (16:21)
[2020-08-04 19:38] VITALS: BP 107/66
== END 2020-08-04 20:40 | disposition hospice, home (50) | DRG 871 ==
LOC: EMEROOARM 13:05 → 3ANU 13:05 → SUATTDRO 17:01 → 3ANU 17:41 → 2NNU 18:16 → 3NENU 07-30 15:22
PROVIDERS: ADMIT Internal Medicine; ATTEND Pharmacist